=== PATIENT | male | born 1960 | race Caucasian/White ===

== ENCOUNTER 2016-08-18 17:29 | Day surgery (SDC) | payer MEDICARE, OTHER ==
[2016-08-18] VITALS (8 sets, daily range): BP systolic 131–179; BP diastolic 84–106
[~2016-08-18] VITALS: Ht 188 cm; Wt 79.9 kg
--- OUTSIDE RECORDS SUMMARY | 2016-08-18 17:36 | XMS REPORT ---
Author Author Truman Rodriguez [facility] Address [address] [place], [place] [id number] Care Team Providers Care Line Maintainer Name Role Phone Truman Rodriguez PCP Unavailable Allergies and Adverse Reactions Name Reaction Notes NO KNOWN DRUG ALLERGIES Plan of Treatment Not available. Medications Active Name Start Date Estimated Completion Date SIG Comments carvedilol 6.25 mg oral tablet 02/19/2016 05/14/2017 take 1 tablet (6.25 mg) by oral route 2 times per day with food for 90 days clonidine HCl 0.2 mg oral tablet 02/19/2016 05/14/2017 take 1 tablet by oral route 4 times a day for 90 days lisinopril 40 mg oral tablet 02/19/2016 05/14/2017 take 1 tablet (40 mg) by oral route once daily for 90 days Plavix 75 mg oral tablet 02/19/2016 05/14/2017 take 1 tablet (75 mg) by oral route once daily for 90 days Wal-Act D Cold and Allergy 2.5-60 mg oral tablet 02/19/2016 takes 2 tablets daily Lyrica 75 mg oral capsule 02/19/2016 take 1 capsule (75 mg) by oral route 2 times per day Problem List Not available. Vital Signs Date Time BP-Sys(mm[Hg] BP-Melissa(mm[Hg]) HR(bpm) RR(rpm) Temp WT HT HC BMI BSA BMI Percentile O2 Sat(%) 02/19/2016 8:54:00 AM 126 mmHg 82 mmHg 66 bpm 18 rpm 97.3 F 172 lbs 99 % Social History Not available. History of Procedures Not available. Results Summary Not available. History Of Immunizations Not available. History of Past Illness Name Date of Onset Comments Hypertension Chronic Obstructive Pulmonary Disease Neuropathy bilateral hands d/t blackburn Lumbar Pain Neck pain Hypertension Feb 19 2016 9:11AM CAD (coronary artery disease) Feb 19 2016 9:11AM Allergic rhinitis Feb 19 2016 9:11AM Burning pain Feb 19 2016 9:11AM Payers Insurance Name Company Name Plan Name Plan Number Policy Number Policy Group Number Start Date Medicare Part A Medicare RHC [id number] Sunday, 2013 Medicare Part A Medicare - Lab/Xray [id number] Sunday, September 08, 2013 History of Encounters Visit Date Visit Type Provider 02/19/2016 Office visit Truman Rodriguez MD
[2016-08-18 17:45] LABS: BASOPHILS # (AUTO) 0.1 10^3/uL (0.0-0.1); BASOPHILS % (AUTO) 1 % (0-10); EOSINOPHILS # (AUTO) 0.2 10^3/uL (0.0-0.3); EOSINOPHILS % (AUTO) 4 % (0-10); LYMPHOCYTES # (AUTO) 2.2 X 10^3 (1.0-4.0); LYMPHOCYTES % (AUTO) 34 % (12-44); MEAN CORPUSCULAR HEMOGLOBIN 33 PG (25-34); MEAN CORPUSCULAR HGB CONC 35 G/DL (32-36); MEAN CORPUSCULAR VOLUME 93 FL (80-99); MEAN PLATELET VOLUME 8.8 FL (7.4-10.4); MONOCYTES # (AUTO) 0.4 X 10^3 (0.0-1.0); MONOCYTES % (AUTO) 7 % (0-12); NEUTROPHILS # (AUTO) 3.7 X 10^3 (1.8-7.8); NEUTROPHILS % (AUTO) 55 % (42-75); PLATELET COUNT 174 10^3/uL (130-400); RED BLOOD COUNT 5.04 10^6/uL (4.35-5.85); RED CELL DISTRIBUTION WIDTH 12.9 % (10.0-14.5); WHITE BLOOD COUNT 6.7 10^3/uL (4.3-11.0)
[2016-08-18] MEDS ORDERED: CARV6.252 PO (17:58)
[2016-08-18] MEDS ORDERED: CLOP75TA69 PO (17:58)
[2016-08-18] MEDS ORDERED: LISI40TA PO (17:58)
[2016-08-18] MEDS ORDERED: CLON0.2T PO (17:58)
[2016-08-18 18:00] LABS: INR 0.9 (0.8-1.4); PROTHROMBIN TIME PATIENT 12.3 SEC (12.2-14.7)
[2016-08-18] MEDS ORDERED: ASPIRIN 81 MG CHEW (CHILDREN'S ASA) PO ONE (18:00)
[2016-08-18 18:09] LABS: ALANINE AMINOTRANSFERASE 12 U/L (0-55); ALBUMIN 4.3 G/DL (3.2-4.5); ANION GAP 9 MMOL/L (5-14); ASPARTATE AMINO TRANSFERASE 14 U/L (5-34); BILIRUBIN,TOTAL 0.5 MG/DL (0.1-1.0); BLOOD UREA NITROGEN 13 MG/DL (7-18); BUN/CREATININE RATIO 13; CALCIUM 9.4 MG/DL (8.5-10.1); CARBON DIOXIDE 26 MMOL/L (21-32); CHLORIDE 104 MMOL/L (98-107); CREATININE SERUM 1.03 MG/DL (0.60-1.30); GFR ESTIMATED > 60; GLUCOSE 89 MG/DL (70-105); MAGNESIUM 2.2 MG/DL (1.8-2.4); POTASSIUM 4.1 MMOL/L (3.6-5.0); SODIUM 139 MMOL/L (135-145); TOTAL PROTEIN 7.1 G/DL (6.4-8.2)
--- NOTE | 2016-08-18 18:10 | Diagnostic Imaging Report ---
INDICATION: Chest pain COMPARISON STUDY: None FINDINGS: Frontal view of the chest demonstrates the lungs to be clear. The heart size and vascularity are normal. There are no pleural effusions. IMPRESSION: Negative portable chest. Dictated by: Dictated on workstation # [id number]
[2016-08-18] MEDS ORDERED: NITROGLYCERIN 2% OINT 1 GM UNIT DOSE PACKET TOP ONE (18:15)
[2016-08-18] MEDS ORDERED: ACETAMINOPHEN 500 MG TAB (TYLENOL) PO ONE (18:30)
[2016-08-18] MEDS ORDERED: NS 100 ML (IVPB) BAG IV ONE (18:30)
[2016-08-18] MEDS ORDERED: IOHEXOL 350 MG/ML 150 ML (OMNIPAQUE 350) VIAL IV ONE (18:30)
[2016-08-18 18:41] LABS: AMYLASE 92 U/L (25-125); LIPASE 17 U/L (8-78)
[2016-08-18 18:47] LABS: TROPONIN I < 0.30 NG/ML (<0.30)
[2016-08-18] MEDS ORDERED: morphine INJ 10 MG/ML 1ML (SYR OR VIAL) IVP STA (18:52)
--- NOTE | 2016-08-18 18:58 | ED Chest Pain ---
General Chief Complaint: Chest Pain Stated Complaint: CP Nursing Triage Note: PT REPORTS MEDIAL CP STARTING X 2 DAYS. PT ALSO REPORTS HYPERTENSION. DENIES N/V. PT REPORTS SOA WITH CP. 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 Nursing Sepsis Screen: No Definite Risk Source: patient (JESENIA DIFFICULT HISTORIAN) History of Present Illness Time seen by provider: 18:00 Initial Comments PT ARRIVES VIA POV FROM HOME C/O CHEST PAIN FOR A FEW DAYS STATES PAIN INITIALLY WOULD COME AND GO, BUT HAS BEEN CONSTANT NOW FOR 24 HOURS PAIN RADIATES DOWN LEFT ARM TO 4TH AND 5TH FINGERS. PAIN IS ESPECIALLY BAD IN ELBOW C/O SHORTNESS OF BREATH NO SWEATS OCCASIONAL PALPITATIONS SLIGHT NAUSEA, NO VOMITING STATES HIS BP WAS 218/130 LAST PM, SO DOUBLED UP ON LISINOPRIL. TAKES ALL HIS MEDICATIONS IN THE EVENING AND HAS NOT TAKEN ANY TODAY DID TAKE [address] HERE WITHOUT SIGNIFICANT IMPROVEMENT. PT RATES PAIN 02/17 PT STATES "THIS HAPPENS ALL THE TIME" "I NEED A STENT EVERY COUPLE OF YEARS" PT STATES HE HAS HAD 4 NJ'S--NON-STEMI'S PER PT--STATES HIS EKG'S ARE ALWAYS NORMAL, BUT TROPONIN LEVELS WERE HIGH. STATES HE HAS HAD 6 CARDIAC CATHS AND 5 STENTS--STATES ONE TIME THEY COULDN'T GET THE STENT IN, BUT NEEDED IT. WENT TO [facility] YESTERDAY FOR THIS PROBLEM. ALL TESTS INCLUDING CT OF CHEST WERE REPORTEDLY NORMAL AND WAS SENT HOME. PT CONTINUES TO SMOKE 2 PPD PCP: DR. TATE, [place] PT STATES HE JUST MOVED HERE FROM [place] 8 MONTHS AGO AND JUST RECENTLY ESTABLISHED WITH DR. TATE. HAS NOT ESTABLISHED WITH OR REFERRED TO LOCAL ENGINEERING PROJECT DESIGNER SINCE MOVING HERE. Allergies and Home Medications Allergies Coded Allergies: No Known Drug Allergies (Unverified , 08/18/16) Home Medications Carvedilol 6.25 Mg Tablet 6.25 MG PO BID (Reported) Clonidine HCl 0.2 Mg Tablet 0.4 MG PO HS (Reported) Clopidogrel Bisulfate 75 Mg Tablet 75 MG PO DAILY (Reported) Lisinopril 40 Mg Tablet 40 MG PO DAILY (Reported) Review of Systems Constitutional: no symptoms reportedNo diaphoresis, No dizziness EENTM: No Symptoms Reported Respiratory: See HPI Shortness of Air SOA With Exertion Cardiovascular: See HPI Chest PainDenies Edema, Denies Lightheadedness, PalpitationsDenies Syncope Gastrointestinal: See HPIDenies Abdominal Pain, NauseaDenies Vomiting Genitourinary: No Symptoms Reported Musculoskeletal: see HPI (LEFT ARM PAIN )No back pain, No neck pain Skin: no symptoms reported Psychiatric/Neurological: No Symptoms Reported Endocrine: No Symptoms Reported Hematologic/Lymphatic: No Symptoms Reported Past Gmwtakv-Mcjpsk-Vcgdba Hx Patient Social History Alcohol Use: Denies Use Recreational Drug Use: Yes Drug of Choice: MARIJUANA Smoking Status: Current Everyday Smoker (2 PPD) Type Used: Cigarettes Recent Foreign Travel: No Contact w/Someone Who Travel: No Recent Infectious Disease Expo: No Recent Hopitalizations: No Surgeries HX Surgeries: Yes (LOWER BACK, CERVICAL FUSION, CARDIAC CATH X 6--5 STENTS, L KNEE BALLOON ANGIOPLASTY FOR DVT, SKIN GRAFTS, FEEDING TUBE/REMOVED) Surgeries: Abdominal, Cardiac, Coronary Stent, Orthopedic, Tracheostomy Respiratory Hx Respiratory Disorders: Yes (WAS INVOLVED IN EXPLOSION IN 2013 AND WAS IN [facility] FOR A MONTH AND ICU X 2 MONTHS--HAD TRACH AND FEEDING TUBE, BOTH NOW REMOVED. ) Respiratory Disorders: COPD (NO MEDICATIONS) Cardiovascular Hx Cardiac Disorders: Yes (NJ X 4, NON-STEMI'S; STENTS X 5) Cardiac Disorders: Coronary Artery Disease, Deep Vein Thrombosis, Heart Attack , Hypertension Neurological Hx Neurological Disorders: No Genitourinary Hx Genitourinary Disorders: Yes Genitourinary Disorders: Prostate Problems, Kidney Stones Gastrointestinal Hx Gastrointestinal Disorders: No Musculoskeletal Hx Musculoskeletal Disorders: Yes (CHRONIC NECK AND BACK PAIN ) Musculoskeletal Disorders: Arthritis, Chronic Back Pain Endocrine Hx Endocrine Disorders: No HEENT HX ENT Disorders: Yes (HAD TRACH IN 2014--WAS IN [facility] X 1 MONTH AND ICU X 2 MONTHS) Cancer Hx Cancer: No Psychosocial Hx Psychiatric Problems: Yes Behavioral Health Disorders: Anxiety Integumentary HX Skin/Integumentary Disorder: Yes ([place] WITH SKIN GRAFTS IN 2013 SECONDARY TO AN EXPLOSION) Blood Transfusions Hx Blood Disorders: No Physical Exam Vital Signs Vital Sign - Last 12Hours 08/18/16 17:45 Temp 97.9 Pulse 63 Resp 20 B/P 171/112 Pulse Ox 98 O2 Delivery Room Air Capillary Refill : Less Than 3 Seconds General Appearance: No Apparent Distress Anxious (TALKS NON-STOP) Thin Other ( REEKS OF CIGARETTES) HEENT: PERRL/EOMI Neck: Full Range of Motion Normal Inspection Non Tender SuppleNo Carotid Bruit , No JVD Respiratory: Chest Non Tender Normal Breath Sounds No Accessory Muscle Use No Respiratory Distress Cardiovascular: Regular Rate, Rhythm No Edema No JVD No Murmur Normal Peripheral Pulses Gastrointestinal: Normal Bowel Sounds No Organomegaly No Pulsatile Mass Non Tender Soft Extremity: Normal Capillary Refill Normal Inspection Normal Range of Motion Non Tender No Calf Tenderness No Pedal Edema Neurologic/Psychiatric: Alert Oriented x3 No Motor/Sensory Deficits skin toggler II- XII Norm as Tested Skin: Normal Color Warm/Dry Progress/Results/Core Measures Results/Orders Lab Results Laboratory Tests Test 08/18/16 17:37 Range/Units Activated Partial Thromboplast Time 26 24-35 SEC Alanine Aminotransferase (ALT/SGPT) 12 0-55 U/L Albumin 4.3 3.2-4.5 G/DL Alkaline Phosphatase 50 40-136 U/L Amylase Level 92 25-125 U/L Anion Gap 9 5-14 MMOL/L Aspartate Amino Transf (AST/SGOT) 14 5-34 U/L B-Type Natriuretic Peptide < 10.0 <100.0 PG/ML BUN/Creatinine Ratio 13 Basophils # (Auto) 0.1 0.0-0.1 10^3/uL Basophils (%) (Auto) 1 0-10 % Blood Urea Nitrogen 13 7-18 MG/DL Calcium Level 9.4 8.5-10.1 MG/DL Carbon Dioxide Level 26 21-32 MMOL/L Chloride Level 104 98-107 MMOL/L Creatinine 1.03 0.60-1.30 MG/DL Eosinophils # (Auto) 0.2 0.0-0.3 10^3/uL Eosinophils (%) (Auto) 4 0-10 % Estimat Glomerular Filtration Rate > 60 Glucose Level 89 70-105 MG/DL Hematocrit 47 40-54 % Hemoglobin 16.4 13.3-17.7 G/DL INR Comment 0.9 0.8-1.4 Lipase 17 8-78 U/L Lymphocytes # (Auto) 2.2 1.0-4.0 X 10^3 Lymphocytes (%) (Auto) 34 12-44 % Magnesium Level 2.2 1.8-2.4 MG/DL Mean Corpuscular Hemoglobin 33 25-34 PG Mean Corpuscular Hemoglobin Concent 35 32-36 G/DL Mean Corpuscular Volume 93 80-99 FL Mean Platelet Volume 8.8 7.4-10.4 FL Monocytes # (Auto) 0.4 0.0-1.0 X 10^3 Monocytes (%) (Auto) 7 0-12 % Neutrophils # (Auto) 3.7 1.8-7.8 X 10^3 Neutrophils (%) (Auto) 55 42-75 % Platelet Count 174 130-400 10^3/uL Potassium Level 4.1 3.6-5.0 MMOL/L Prothrombin Time 12.3 12.2-14.7 SEC Red Blood Count 5.04 4.35-5.85 10^6/uL Red Cell Distribution Width 12.9 10.0-14.5 % Sodium Level 139 135-145 MMOL/L Total Bilirubin 0.5 0.1-1.0 MG/DL Total Protein 7.1 6.4-8.2 G/DL Troponin I < 0.30 <0.30 NG/ML White Blood Count 6.7 4.3-11.0 10^3/uL My Orders Orders-POP GARCIA DO BNP (08/18/16 18:00) Amylase (08/18/16 18:00) Lipase (08/18/16 18:00) Troponin I (08/18/16 18:00) Aspirin Chewable Tablet (Baby Aspirin Ch (08/18/16 18:00) Nitroglycerin Ointment (Nitrobid Ointme (08/18/16 18:15) Ct Angio Chest W (08/18/16 18:19) Acetaminophen Tablet (Tylenol Tablet) (08/18/16 18:30) Iohexol Injection (Omnipaque 350 Mg/Ml 1 (08/18/16 18:30) Ns (Ivpb) (Sodium Chloride 0.9% Ivpb Bag (08/18/16 18:30) Morphine Injection (Morphine Injection (08/18/16 18:52) Diphenhydramine Injection (Benadryl Inje (08/18/16 19:15) Enoxaparin Injection (Lovenox Injection) (08/18/16 19:45) Metoprolol Tartrate (Ir) Tab (Lopressor (08/18/16 19:45) Medications Given in ED Current Medications Medications Dose Ordered Sig/Archana Route Start Time Stop Time Status Last Admin Dose Admin Acetaminophen 1,000 mg ONCE ONCE PO 08/18/16 18:30 08/18/16 18:31 DC 08/18/16 18:50 1,000 MG Aspirin 324 mg ONCE ONCE PO 08/18/16 18:00 08/18/16 18:02 DC 08/18/16 18:09 324 MG Diphenhydramine HCl 50 mg ONCE ONCE IVP 08/18/16 19:15 08/18/16 19:16 DC 08/18/16 19:11 50 MG Enoxaparin Sodium 80 mg ONCE ONCE SC 08/18/16 19:45 08/18/16 19:46 DC 08/18/16 19:44 80 MG Iohexol 125 ml ONCE ONCE IV 08/18/16 18:30 08/18/16 18:31 DC 08/18/16 18:36 125 ML Metoprolol Tartrate 25 mg ONCE ONCE PO 08/18/16 19:45 08/18/16 19:46 DC 08/18/16 19:44 25 MG Nitroglycerin 1 inch ONCE ONCE TOP 08/18/16 18:15 08/18/16 18:16 DC 08/18/16 18:09 1 INCH Sodium Chloride 80 ml ONCE ONCE IV 08/18/16 18:30 08/18/16 18:31 DC 08/18/16 18:37 80 ML Vital Signs/I&O Vital Sign - Last 12Hours 08/18/16 08/18/16 08/18/16 17:45 17:58 17:58 Temp 97.9 Pulse 63 Resp 20 B/P 171/112 Pulse Ox 98 98 O2 Delivery Room Air Room Air Room Air Blood Pressure Mean: 131 Progress Note : Progress Note HAS SOME REDNESS AND BURNING SENSATION TO SKIN ON RETURN FROM CT--HAS HAD IV DYE MULTIPLE TIMES WITHOUT PROBLEMS. WAS GIVEN BENADRYL AND SYMPTOMS RESOLVED. PAIN RESOLVED AND BP DOWN AT TIME OF ADMIT ECG Initial ECG Impression Time: 17:35 Initial ECG Rate: 66 Initial ECG Rhythm: Normal Sinus Initial ECG Comparisson: No Previous ECG Available Diagnostic Imaging Comments CXR--NO ACUTE PROCESS, PER RADIOLOGIST REPORT CT CHEST ANGIO--NO P.E., OTHER NON-ACUTE FINDINGS--PER RADIOLOGIST REPORT @ 1924 Reviewed: Reviewed by Me Departure Communication Progress Notes 1924--SPOKE WITH DR. MCLAIN, ACCEPTS PT FOR ADMIT 1925--SPOKE WITH DR. HIRSCH FOR CARDIOLOGY CONSULT. ORDERS NOTED. Impression Impression: Primary Impression: Chest pain Additional Impressions: Unstable angina Uncontrolled hypertension Disposition: ADMITTED INPATIENT Condition: Improved Decision to Admit Reason: Admit from ER (General) Decision to Admit/Date: Aug 18, 2016 Time/Decision to Admit Time: 19:35 Departure-Patient Inst. Referrals: UNKNOWN (PCP/Family) Primary Care Physician POP GARCIA DO Aug 18, 2016 18:57
[2016-08-18] MEDS ORDERED: diphenhydrAMINE 50 MG/ML INJ (BENADRYL) IVP ONE (19:15)
--- NOTE | 2016-08-18 19:22 | Diagnostic Imaging Report ---
PROCEDURE: CT angiography of the chest with contrast. TECHNIQUE: Multiple contiguous axial images were obtained through the chest after uneventful bolus administration of intravenous contrast. Reconstructed CTA MIP acquisitions were also performed. INDICATION: Shortness of breath with chest pain radiating down the left arm for two days. FINDINGS: There are no central or proximal segmental pulmonary emboli. Within the peripheral vessels, no definite emboli are seen. The very distal vessels are not well opacified. The thoracic aorta demonstrates atherosclerotic disease with no aneurysmal dilatation appreciated. At the origin of the left subclavian artery, there is atherosclerotic disease noted. The origin of the left common carotid artery contains peripheral atherosclerotic disease as well. In addition, a very tiny focal dissection versus peripheral calcification noted, best seen on the axial images 43 through 45. Within the mediastinum, no hilar or mediastinal adenopathy is appreciated. There is no axillary adenopathy. Thyroid contains multiple small nodularities. The lungs contain diffuse emphysematous disease. Areas of chronic scar or atelectasis seen bilaterally. There is no significant pericardial or pleural effusion. Peripheral scarring noted in the upper lungs towards the apices. There is no acute osseous abnormality. Within the visualized upper abdominal structures, there are multiple collateral vessels noted; nonspecific in nature. These track along the upper posterior abdomen/retroperitoneal region and adjacent to the spine. Atherosclerotic disease is noted in the upper abdominal aorta. Mild aneurysmal dilatation of the suprarenal aorta is noted measuring at least 3.2 cm. The visualized upper abdominal viscera demonstrate no acute process. Mild hyperdensity in the gallbladder could represent small stones. No surrounding inflammatory change is appreciated. IMPRESSION: 1. No evidence for pulmonary embolus. 2. Atherosclerotic disease diffusely throughout the course of the aorta with atherosclerotic changes noted in the branches of the aortic arch. A very tiny focal dissection at the origin of the left carotid artery is not excluded and is age indeterminate. More distally however, the visualized carotid artery is normal in appearance. 2. Aortic aneurysm within the upper abdomen with diffuse atherosclerotic disease and possible collateral vessels seen in the upper abdomen as well. If clinically warranted, dedicated imaging of the abdomen could further evaluate. 3. Emphysematous disease throughout the lungs with other incidental findings as described above including possible stones in the gallbladder. Sonogram of this region could be performed if there is right upper quadrant pain. Additionally, sonographic evaluation of the thyroid gland on a nonemergent basis is recommended as well due to multiple small nodules. Dictated by: Dictated on workstation # [id number]
[2016-08-18] MEDS ORDERED: ENOXAPARIN 80 MG/0.8 ML (LOVENOX) SYR SC ONE (19:45)
[2016-08-18] MEDS ORDERED: meTOprolol TARTRATE 25 MG (LOPRESSOR) TABLET PO ONE (19:45)
[2016-08-18] MEDS ORDERED: NITROGLYCERIN SUBLINGUAL 0.4 MG TAB (NITROSTAT) SL PRN (20:45)
[2016-08-18] MEDS ORDERED: PATIENT MAY USE OWN MEDS, ALL PO SCH (20:45)
[2016-08-18] MEDS ORDERED: methylPREDNISolone 125 MG (Solu-MEDROL) VIAL IVP ONE (21:45)
[2016-08-18] MEDS: morphine INJ 10 MG/ML 1ML (SYR OR VIAL) IVP PRN (22:05)
[2016-08-18] MEDS ORDERED: CATHETER FLUSH 10 ML SYR IV PRN (22:15)
[2016-08-19] VITALS (14 sets, daily range): BP systolic 114–171; BP diastolic 65–106
[2016-08-19] MEDS: CATHETER FLUSH 10 ML SYR IV SCH ×2 (05:16→14:00)
[2016-08-19 05:51] LABS: BASOPHILS % (AUTO) 0 % (0-10); EOSINOPHILS % (AUTO) 0 % (0-10); LYMPHOCYTES # (AUTO) 0.8 X 10^3 (1.0-4.0); LYMPHOCYTES % (AUTO) 17 % (12-44); MEAN CORPUSCULAR HEMOGLOBIN 33 PG (25-34); MEAN CORPUSCULAR HGB CONC 35 G/DL (32-36); MEAN CORPUSCULAR VOLUME 94 FL (80-99); MONOCYTES # (AUTO) 0.1 X 10^3 (0.0-1.0); MONOCYTES % (AUTO) 1 % (0-12); NEUTROPHILS # (AUTO) 3.6 X 10^3 (1.8-7.8); NEUTROPHILS % (AUTO) 81 % (42-75); PLATELET COUNT 151 10^3/uL (130-400); RED BLOOD COUNT 4.99 10^6/uL (4.35-5.85); WHITE BLOOD COUNT 4.5 10^3/uL (4.3-11.0)
[2016-08-19] MEDS ORDERED: diphenhydrAMINE 50 MG/ML INJ (BENADRYL) IVP ONE (06:00)
[2016-08-19 06:24] LABS: ALANINE AMINOTRANSFERASE 15 U/L (0-55); ALBUMIN 4.1 G/DL (3.2-4.5); ANION GAP 11 MMOL/L (5-14); ASPARTATE AMINO TRANSFERASE 16 U/L (5-34); BILIRUBIN,TOTAL 0.5 MG/DL (0.1-1.0); BLOOD UREA NITROGEN 13 MG/DL (7-18); BUN/CREATININE RATIO 13; CALCIUM 9.5 MG/DL (8.5-10.1); CARBON DIOXIDE 22 MMOL/L (21-32); CHLORIDE 105 MMOL/L (98-107); CHOLESTEROL 224 MG/DL (< 200); CREATININE SERUM 0.98 MG/DL (0.60-1.30); DIRECT LDL 175 MG/DL (1-129); GFR ESTIMATED > 60; GLUCOSE 162 MG/DL (70-105); POTASSIUM 4.6 MMOL/L (3.6-5.0); SODIUM 138 MMOL/L (135-145); TOTAL PROTEIN 6.8 G/DL (6.4-8.2); TRIGLYCERIDES 106 MG/DL (<150); VLDL CHOLESTEROL 21 MG/DL (5-40)
[2016-08-19] MEDS ORDERED: FLU TRIvalent (5 YOA+) 2016-17 (AFLURIA) 0.5 ML IM ONE (06:45)
--- NOTE | 2016-08-19 07:27 | Consultation-Cardiology ---
HPI-Cardiology Cardiology Consultation Date of Consultation 08/19/16 Date of Admission Indication: chest pain HPI 56-year-old gentleman with history of coronary artery disease, multiple intervention in the past, total of 4 stents. Started having recurrent episode of chest pain, left arm pain, he is an active smoker. Denied any palpitation, syncope or near syncopal episodes. History of peripheral arterial disease, active smoker. Seen in [place] to hospital the day before yesterday then seen in our emergency room yesterday and he was admitted Home Medications & Allergies Allergies: Coded Allergies: No Known Drug Allergies (Unverified , 08/18/16) Home Medication List Reviewed: Yes [id number]-Akehld Hx Patient Social History Alcohol Use: Denies Use Recreational Drug Use: Yes Drug of Choice: MARIJUANA Smoking Status: Current Everyday Smoker (2 PPD) Type Used: Cigarettes Recent Foreign Travel: No Recent Infectious Disease Expo: No Recent Hopitalizations: No Physical Abuse Screen: No Sexual Abuse: No Past Medical History past medical history as discussed Constitutional: no symptoms reported see HPI EENTM: no symptoms reported see HPI Respiratory: see HPINo cough, dyspnea on exertionNo hemoptysis, No orthopnea , No phlegm, No short of breath, No stridor, No wheezing, No other Cardiovascular: see HPI chest painNo edema, No Hx of Intervention, No palpitations, No syncope, No vascular heart diseas, No other Gastrointestinal: no symptoms reported see HPI Genitourinary: no symptoms reported see HPI Musculoskeletal: no symptoms reported see HPI Skin: no symptoms reported see HPI Psychiatric/Neurological: No Symptoms Reported See HPI Reviewed Test Results Reviewed Test Results Lab Laboratory Tests Test 08/18/16 17:37 08/18/16 23:18 08/19/16 05:44 Range/Units Activated Partial Thromboplast Time 26 24-35 SEC Alanine Aminotransferase (ALT/SGPT) 12 15 0-55 U/L Albumin 4.3 4.1 3.2-4.5 G/DL Alkaline Phosphatase 50 46 40-136 U/L Amylase Level 92 25-125 U/L Anion Gap 9 11 5-14 MMOL/L Aspartate Amino Transf (AST/SGOT) 14 16 5-34 U/L B-Type Natriuretic Peptide < 10.0 <100.0 PG/ML BUN/Creatinine Ratio 13 13 Basophils # (Auto) 0.1 0.0 0.0-0.1 10^3/uL Basophils (%) (Auto) 1 0 0-10 % Blood Urea Nitrogen 13 13 7-18 MG/DL Calcium Level 9.4 9.5 8.5-10.1 MG/DL Carbon Dioxide Level 26 22 21-32 MMOL/L Chloride Level 104 105 98-107 MMOL/L Creatinine 1.03 0.98 0.60-1.30 MG/DL Eosinophils # (Auto) 0.2 0.0 0.0-0.3 10^3/uL Eosinophils (%) (Auto) 4 0 0-10 % Estimat Glomerular Filtration Rate > 60 > 60 Glucose Level 89 162 H 70-105 MG/DL Hematocrit 47 47 40-54 % Hemoglobin 16.4 16.2 13.3-17.7 G/DL INR Comment 0.9 0.8-1.4 Lipase 17 8-78 U/L Lymphocytes # (Auto) 2.2 0.8 L 1.0-4.0 X 10^3 Lymphocytes (%) (Auto) 34 17 12-44 % Magnesium Level 2.2 1.8-2.4 MG/DL Mean Corpuscular Hemoglobin 33 33 25-34 PG Mean Corpuscular Hemoglobin Concent 35 35 32-36 G/DL Mean Corpuscular Volume 93 94 80-99 FL Mean Platelet Volume 8.8 9.0 7.4-10.4 FL Monocytes # (Auto) 0.4 0.1 0.0-1.0 X 10^3 Monocytes (%) (Auto) 7 1 0-12 % Neutrophils # (Auto) 3.7 3.6 1.8-7.8 X 10^3 Neutrophils (%) (Auto) 55 81 H 42-75 % Platelet Count 174 151 130-400 10^3/uL Potassium Level 4.1 4.6 3.6-5.0 MMOL/L Prothrombin Time 12.3 12.2-14.7 SEC Red Blood Count 5.04 4.99 4.35-5.85 10^6/uL Red Cell Distribution Width 12.9 13.0 10.0-14.5 % Sodium Level 139 138 135-145 MMOL/L Total Bilirubin 0.5 0.5 0.1-1.0 MG/DL Total Protein 7.1 6.8 6.4-8.2 G/DL Troponin I < 0.30 < 0.30 < 0.30 <0.30 NG/ML White Blood Count 6.7 4.5 4.3-11.0 10^3/uL Cholesterol Level 224 H < 200 MG/DL HDL Cholesterol 45 40-60 MG/DL LDL Cholesterol Direct 175 H 1-129 MG/DL Triglycerides Level 106 <150 MG/DL VLDL Cholesterol 21 5-40 MG/DL Physical Exam Vital Signs Vital Sign - Last 12Hours 08/18/16 17:45 Temp 97.9 Pulse 63 Resp 20 B/P 171/112 Pulse Ox 98 O2 Delivery Room Air Capillary Refill : Less Than 3 Seconds General Appearance: No Apparent Distress WD/WN Eyes: Bilateral Eye EOMI, Bilateral Eye Normal Inspection, Bilateral Eye PERRL HEENT: PERRL/EOMI TMs Normal Normal ENT Inspection Pharynx Normal Neck: Full Range of Motion Normal Inspection Non Tender Supple Carotid Bruit Respiratory: Chest Non Tender Lungs Clear Normal Breath Sounds No Accessory Muscle Use No Respiratory Distress Cardiovascular: Regular Rate, Rhythm No Edema No Gallop No JVD No Murmur Normal Peripheral Pulses Gastrointestinal: Normal Bowel Sounds No Organomegaly No Pulsatile Mass Non Tender Soft Back: Normal Inspection No CVA Tenderness No Vertebral Tenderness Extremity: Normal Capillary Refill Normal Inspection Normal Range of Motion Non Tender No Calf Tenderness No Pedal Edema Neurologic/Psychiatric: Alert Oriented x3 No Motor/Sensory Deficits Normal Mood/Affect Skin: Normal Color Warm/Dry Lymphatic: No Adenopathy A/P-Cardiology Admission Diagnosis Chest pain nonspecific etiology Coronary artery disease Hypertension Hyperlipidemia Assessment/Plan chest pain, nonspecific etiology, extensive cardiac history, having pain waxing and waning. Planning to proceed with cardiac catheterization Coronary artery disease, history of 4 stents placements in the past between [place] and [place]. Last workup was in 2013. Had small vessel disease in operable in the past. Discussed that the stress test is probably would be abnormal. I will proceed with cardiac catheterization Extensive peripheral arterial disease, history of angioplasty of the left lower extremity. Planning to monitor ELENA Hypertension, restart home and monitor blood pressure Hyperlipidemia, monitor lipids Tobaccoism, educated on smoking cessation Small abdominal aortic aneurysm noted incidentally, continue to monitor Clinical Quality Measures AMI/AHF: ASA po Prior to arrival: No DVT/VTE Risk/Contraindication: Risk Factor Score Per Nursin RFS Level Per Nursing on Admit: 4+=Very High JORGE ALBERTO HIRSCH MD Aug 19, 2016 07:27
[2016-08-19] MEDS ORDERED: NS IV 1000 ML 1,000 ML IV SCH ×2 (07:30→13:01)
--- NOTE | 2016-08-19 07:59 | Cardiac Procedure Note-CS/ASA ---
Pre-Procedure Note Pre-Op Procedure Note H&P Reviewed The H&P was reviewed, patient examined and no changes noted. Date H&P Reviewed: Aug 19, 2016 Time H&P Reviewed: 07:58 Conscious Sedation Pre-Proced Time Reviewed: 07:59 ASA Class: 3 Airway Mallampati Classification: ([place] appropriate class) I. II. III, IV Lungs Heart ASA score ASA 1: a normal healthy patient ASA 2: a patient with a mild systemic disease (mid diabetes, controlled hypertension, obesity x ASA 3: a patient with a severe systemic disease that limits activity (angina , COPD, prior Myocardial infarction) ASA 4: a patient with an incapacitating disease that is a constant threat to life (CHF, renal failure) ASA 5: a moribund patient not expected to survive 24 hrs. (ruptured aneurysm) ASA 6: a declared brain patient whose organs are being harvested. For emergent operations, add the letter E after the classification Grade 3 Sedation Plan: Analgesia, Amnesia, Plan communicated to team members, Discussed options with patient/fam, Discussed risks with patient/fam Note The patient is an appropriate candidate to undergo the planned procedure, sedation, and anesthesia. The patient immediately re-assessed prior to indication. JORGE ALBERTO HIRSCH MD Aug 19, 2016 07:59
[2016-08-19] MEDS: morphine INJ 10 MG/ML 1ML (SYR OR VIAL) IVP PRN ×2 (08:11→11:37)
[2016-08-19] MEDS ORDERED: ENOXAPARIN 80 MG/0.8 ML (LOVENOX) SYR SC SCH (09:00)
[2016-08-19] MEDS ORDERED: ASPIRIN E.C. 325 MG (ECOTRIN) TABLET PO SCH (09:00)
[2016-08-19] MEDS ORDERED: ACTIFED PO (09:45)
--- NOTE | 2016-08-19 11:18 | Short Stay Summary-Hospitalist ---
HPI History of Present Illness: HPI/Chief Complaint CC: Chest pain HPI: This is a 56yoWM new pt of Dr. Rodriguez in [place] that recently moved here with hx of severe CAD with multiple stents placed in the past that presented to the ER with complaints of chest pain. Patient Interview: Pt states that he still has itchiness. Pt states that he sees Dr. Rodriguez in [place], and last saw him in June. Pt recently moved here from [place]. 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 Pt has had 5 stents placed, and has had 4 documented mild heart attacks. Pt smokes. Pt does not often drink ETOH. Pt states that he has spoken with Dr. Melvin about another heart cath. Physical exam stable. Pt states that he did not bring sinus medication with pt, and would like a decongestant. Scribed by Jamal Lopez under the direct supervision of Dr. Mclain. Source: patient Date Seen 08/19/16 Attending Physician Rabia Mclain DO PCP No,Local Physician Referring Physician Date of Admission Aug 18, 2016 at 19:46 Home Medications & Allergies Home Medications Reviewed patient Home Medication Reconciliation Form Allergies Coded Allergies: Iodinated Contrast Media - Oral and (Verified Allergy, Unknown, RASH, ) Past Bkrqyug-Lfedvs-Jtcfsw Hx Patient Social History Marrital Status: single Employed/Student: retired Alcohol Use: Denies Use Recreational Drug Use: Yes Drug of Choice: MARIJUANA Smoking Status: Current Everyday Smoker (2 PPD) Type Used: Cigarettes Physical Abuse Screen: No Sexual Abuse: No Recent Foreign Travel: No Contact w/other who traveled: No Recent Hopitalizations: No Recent Infectious Disease Expo: No Seasonal Allergies Seasonal Allergies: No Surgeries HX Surgeries: Yes (LOWER BACK, CERVICAL FUSION, CARDIAC CATH X 6--5 STENTS, L KNEE BALLOON ANGIOPLASTY FOR DVT, SKIN GRAFTS, FEEDING TUBE/REMOVED) Surgeries: Abdominal, Cardiac, Coronary Stent, Orthopedic, Tracheostomy Respiratory Hx Respiratory Disorders: Yes (WAS INVOLVED IN EXPLOSION IN 2013 AND WAS IN COMA FOR A MONTH AND ICU X 2 MONTHS--HAD TRACH AND FEEDING TUBE, BOTH NOW REMOVED. ) Cardiovascular Hx Cardiovascular Disorders: Yes (PA X 4, NON-STEMI'S; STENTS X 5) Cardiac Disorders: Coronary Artery Disease, Deep Vein Thrombosis, Heart Attack , Hypertension Neurological Hx Neurological Disorders: No Reproductive System Sexually Transmitted Disease: No HIV/AIDS: No Genitourinary Hx Genitourinary Disorders: Yes Genitourinary Disorders: Prostate Problems, Kidney Stones Gastrointestinal Hx Gastrointestinal Disorders: No Gastrointestinal Disorders: Gastroesophageal Reflux Musculoskeletal Hx Musculoskeletal Disorders: Yes (CHRONIC NECK AND BACK PAIN ) Musculoskeletal Disorders: Arthritis, Chronic Back Pain Endocrine Hx Endocrine Disorders: No HEENT HX ENT Disorders: Yes (HAD TRACH IN 2014--WAS IN COMA X 1 MONTH AND ICU X 2 MONTHS) Loss of Vision: Denies Cancer Hx Cancer: No Psychosocial Hx Psychiatric Problems: Yes Behavioral Health Disorders: Anxiety Integumentary HX Skin/Integumentary Disorder: Yes ([place] WITH SKIN GRAFTS IN 2014 SECONDARY TO AN EXPLOSION) Blood Transfusions Hx Blood Disorders: No Review of Systems Constitutional: see HPI EENTM: no symptoms reported Respiratory: short of breath Cardiovascular: chest pain Gastrointestinal: no symptoms reported Genitourinary: no symptoms reported Musculoskeletal: no symptoms reported Skin: no symptoms reported Psychiatric/Neurological: No Symptoms Reported All Other Systems Reviewed Negative Unless Noted: Yes Physical Exam Physical Exam Vital Signs Vital Sign - Last 12Hours 08/18/16 17:45 Temp 97.9 Pulse 63 Resp 20 B/P 171/112 Pulse Ox 98 O2 Delivery Room Air Capillary Refill : Less Than 3 Seconds General Appearance: No Apparent Distress WD/WN Chronically ill Eyes: Bilateral Eye Normal Inspection, Bilateral Eye PERRL HEENT: PERRL/EOMI Normal ENT Inspection Pharynx Normal Neck: Full Range of Motion Normal Inspection Non Tender Supple Carotid Bruit Respiratory: Chest Non Tender Lungs Clear Normal Breath Sounds No Accessory Muscle Use No Respiratory Distress Cardiovascular: Regular Rate, Rhythm No Edema No Gallop No JVD No Murmur Normal Peripheral Pulses Gastrointestinal: Normal Bowel Sounds No Organomegaly No Pulsatile Mass Non Tender Soft Back: Normal Inspection No CVA Tenderness No Vertebral Tenderness Extremity: Normal Capillary Refill Normal Inspection Normal Range of Motion Non Tender No Calf Tenderness No Pedal Edema Neurologic/Psychiatric: Alert Oriented x3 No Motor/Sensory Deficits Normal Mood/Affect Skin: Normal Color Warm/Dry Lymphatic: No Adenopathy Results Results/Procedures Lab Laboratory Tests 08/18/16 17:37 08/19/16 05:44 Short Stay Diagnosis Discharge Diagnosis-Short Stay Admission Diagnosis Assessment: Chest pain with known severe CAD pt with 5 stents placed in past Continued smoker Hyperlipidemia Chronic sinus congestion Final Discharge Diagnosis Assessment: Chest pain with known severe CAD pt with 5 stents placed in past Continued smoker Hyperlipidemia Chronic sinus congestion Conclusion Plan Plan: Heart cath Review meds for decongestant Send note to PCP in [place]. Clinical Quality Measures AMI/AHF: ASA po Prior to arrival: No DVT/VTE Risk/Contraindication: Risk Factor Score Per Nursin RFS Level Per Nursing on Admit: 4+=Very High RABIA MCLAIN DO Aug 19, 2016 11:18
[2016-08-19] MEDS ORDERED: LIDOCAINE 1% INJ 20 ML (XYLOCAINE) VIAL ONE (12:00)
[2016-08-19] MEDS ORDERED: HEParin (CATH LAB) 2,000 ML IV ONE (12:00)
[2016-08-19] MEDS ORDERED: NS IV 1000 ML 1,000 ML ONE (12:00)
[2016-08-19] MEDS ORDERED: MIDAZOLAM 5 MG/5 ML (VERSED) VIAL ONE (12:02)
[2016-08-19] MEDS ORDERED: fentaNYL INJECTION 100 MCG/2 ML AMP ONE (12:02)
[2016-08-19] MEDS ORDERED: diphenhydrAMINE 50 MG/ML INJ (BENADRYL) ONE (12:02)
[2016-08-19] MEDS ORDERED: methylPREDNISolone 125 MG (Solu-MEDROL) VIAL ONE (12:23)
[2016-08-19] MEDS ORDERED: PATIENT MAY USE OWN MEDS, ALL PO SCH (13:15)
[2016-08-19] MEDS ORDERED: cloNIDine 0.2 MG (CATAPRES) TAB PO SCH (21:00)
[2016-08-19] MEDS ORDERED: ATORVASTATIN 10 MG (LIPITOR) TABLET PO SCH (21:00)
[2016-08-20] MEDS ORDERED: ACTIFED PO SCH (09:00)
--- NOTE | 2016-08-21 10:45 | CARDIAC CATHETERIZATION ---
PROCEDURE PHYSICIAN: JORGE ALBERTO HIRSCH DATE OF PROCEDURE: 08/19/2016 REFERRING PHYSICIAN: Dr. Rabia Sampson. BRIEF HISTORY: Mr. Alvarez is a 56-year-old gentleman with extensive cardiac history, coronary artery disease and peripheral arterial disease. He came in with chest pain scheduled for left heart catheterization. PROCEDURE NOTE: After explaining the procedure to the patient, all pros and cons were explained. All questions were answered. The patient signed a consent, then he was placed on the cardiac catheterization laboratory the right groin was prepped in a sterile fashion. Local anesthesia applied to right groin. 6-Malaysian sheath was placed in the right femoral artery. I advanced Maxwell right catheter over the J-wire to the right coronary system, angiogram was done. Multiple views were taken. Then I exchanged over a long wire due to the fact that the CT scan reported small dissection in the aortic arch and performed angiogram to the left coronary system. I was obligated to use multiple views due to the fact that the patient had left main and pressure was (s/l dampening) out every time I attempted to intubate the left main coronary system. Then a long J-wire was used again to exchange into a pigtail catheter advanced to the left ventricular cavity. Pressure was measured. Left ventriculogram was done. Pullback LV to aorta was done. The aortic arch angiogram was done. I proceeded with abdominal aortogram evaluation due to the fact that it was mentioned in the CAT scan that it is suspected abdominal aortic aneurysm. The patient will need a bypass surgery and I wanted to make sure that the aneurysm will not interfere with a balloon pump placement. At the end of the procedure, sheath was removed. Mynx device deployed. Hemostasis achieved. FINDINGS: HEMODYNAMICS: LV pressure 141/14, end-diastolic pressure of 14, aortic pressure 154/89, mean of 140 ANATOMY: 1. Left main coronary artery is small artery appeared to have diffuse tubular stenosis with distal severe stenosis. 2. Left anterior descending artery is calcified artery, multiple segments, midportion has 70% stenosis. 3. Left circumflex artery has a patent stent at the proximal portion. Ostial circ has 95% stenosis. 4. Right coronary artery is diffusely diseased. Proximally there is a 40 to 50% stenosis. Otherwise, small vessel. 5. Left ventriculogram: Left ventriculogram was done in the right anterior oblique position. The left ventricle is normal in size with normal contractility. Estimated ejection fraction 60%. 6. Aortic arch angiogram: Aortic arch angiogram was done in the left anterior oblique position. Aortic arch evaluation showed diffuse atherosclerotic plaque. Origin of the left subclavian artery showed some calcification. It does not appear to be dissection. 7. Abdominal aortogram: Abdominal aortogram was done in AP position. Abdominal aorta is slightly prominent. Small aneurysmal dilatation infrarenally. No dissection was noted. Renal arteries appeared normal. Superior and anterior mesenteric artery are normal. CONCLUSION: 1. Tubular stenosis in the left main with severe stenosis in the left main distally. 2. Moderate disease diffusely in the LAD with mid 70% stenosis. 3. Ostial circumflex, 95% stenosis. 4. 40 to 50% stenosis in the proximal right coronary artery with diffuse disease distally. 5. Normal left ventricular size and systolic function. Estimated ejection fraction 60%. 6. Hypertensive changes in the thoracic and abdominal aorta with a small infrarenal abdominal aortic aneurysm. Calcification at the origin of the carotids. Job ID: [id number] Dictated Date: 08/19/2016 13:01:52 Marketing Area Manager Date: 08/21/2016 10:36:13 / tomy
--- NOTE | 2016-08-21 10:48 | DISCHARGE SUMMARY ---
PROCEDURE PHYSICIAN: JORGE ALBERTO HIRSCH DATE OF PROCEDURE: 08/19/2016 REFERRING PHYSICIAN: Dr. Rabia Sampson. BRIEF HISTORY: Mr. Alvarez is a 56-year-old gentleman with extensive cardiac history, coronary artery disease and peripheral arterial disease. He came in with chest pain scheduled for left heart catheterization. PROCEDURE NOTE: After explaining the procedure to the patient, all pros and cons were explained. All questions were answered. The patient signed a consent, then he was placed on the cardiac catheterization laboratory the right groin was prepped in a sterile fashion. Local anesthesia applied to right groin. 6-Lithuanian sheath was placed in the right femoral artery. I advanced Maxwell right catheter over the J-wire to the right coronary system, angiogram was done. Multiple views were taken. Then I exchanged over a long wire due to the fact that the CT scan reported small dissection in the aortic arch and performed angiogram to the left coronary system. I was obligated to use multiple views due to the fact that the patient had left main and pressure was (s/l dampening) out every time I attempted to intubate the left main coronary system. Then a long J-wire was used again to exchange into a pigtail catheter advanced to the left ventricular cavity. Pressure was measured. Left ventriculogram was done. Pullback LV to aorta was done. The aortic arch angiogram was done. I proceeded with abdominal aortogram evaluation due to the fact that it was mentioned in the CAT scan that it is suspected abdominal aortic aneurysm. The patient will need a bypass surgery and I wanted to make sure that the aneurysm will not interfere with a balloon pump placement. At the end of the procedure, sheath was removed. Mynx device deployed. Hemostasis achieved. FINDINGS: HEMODYNAMICS: LV pressure 141/14, end-diastolic pressure of 14, aortic pressure 154/89, mean of 140 ANATOMY: 1. Left main coronary artery is small artery appeared to have diffuse tubular stenosis with distal severe stenosis. 2. Left anterior descending artery is calcified artery, multiple segments, midportion has 70% stenosis. 3. Left circumflex artery has a patent stent at the proximal portion. Ostial circ has 95% stenosis. 4. Right coronary artery is diffusely diseased. Proximally there is a 40 to 50% stenosis. Otherwise, small vessel. 5. Left ventriculogram: Left ventriculogram was done in the right anterior oblique position. The left ventricle is normal in size with normal contractility. Estimated ejection fraction 60%. 6. Aortic arch angiogram: Aortic arch angiogram was done in the left anterior oblique position. Aortic arch evaluation showed diffuse atherosclerotic plaque. Origin of the left subclavian artery showed some calcification. It does not appear to be dissection. 7. Abdominal aortogram: Abdominal aortogram was done in AP position. Abdominal aorta is slightly prominent. Small aneurysmal dilatation infrarenally. No dissection was noted. Renal arteries appeared normal. Superior and anterior mesenteric artery are normal. CONCLUSION: 1. Tubular stenosis in the left main with severe stenosis in the left main distally. 2. Moderate disease diffusely in the LAD with mid 70% stenosis. 3. Ostial circumflex, 95% stenosis. 4. 40 to 50% stenosis in the proximal right coronary artery with diffuse disease distally. 5. Normal left ventricular size and systolic function. Estimated ejection fraction 60%. 6. Hypertensive changes in the thoracic and abdominal aorta with a small infrarenal abdominal aortic aneurysm. Calcification at the origin of the carotids. FINAL DIAGNOSIS: 1. Coronary artery disease. 2. Peripheral arterial disease. 3. Unstable angina. 4. Hypertension. 5. Hyperlipidemia. 6. Infrarenal abdominal aortic aneurysm. Job ID: [id number] Dictated Date: 08/19/2016 13:01:52 Shoe Caser Date: 08/21/2016 10:45:19/tomy
[2016-08-31] MEDS ORDERED: LORA10TA7 PO (09:12)
== END 2016-08-19 15:48 | disposition short-term general hospital (02) ==
LOC: ER 17:32 → UNDOADMOB 19:46 → CSD 19:46 → CATH 20:20 → CSD 20:20 → UNDODISOB 08-19 15:48 → CATH 08-19 15:48
PROVIDERS: ATTEND Internal Medicine
DX: I25.110 Atherosclerotic heart disease of native coronary artery with unstable angina pectoris (principal); I70.0 Atherosclerosis of aorta; I71.4 Abdominal aortic aneurysm, without rupture; I10 Essential (primary) hypertension; E78.5 Hyperlipidemia, unspecified; R09.81 Nasal congestion; I73.9 Peripheral vascular disease, unspecified; Z72.0 Tobacco use; Z95.5 Presence of coronary angioplasty implant and graft; Z98.62 Peripheral vascular angioplasty status; Z79.899 Other long term (current) drug therapy
CPT/HCPCS: 36221; 36415; 71010; 71275; 75625; 80053; 80061; 82150; 83690; 83735; 83880; 84484; 85025; 85610; 85730; 90471; 93005; 93041; 93458; 96372; 96374; 96375; G0378

== ENCOUNTER 2016-08-29 18:40 | Inpatient (IN) | payer MEDICARE ==
[~2016-08-29] VITALS: Ht 188 cm; Wt 73.8 kg
[~2016-08-29 18:40] MED LIST: ACTIFED PO; CARV6.252 PO; CLON0.2T PO; CLOP75TA69 PO; LISI40TA PO
[2016-08-29 19:00] VITALS: BP 120/76
[2016-08-29] MEDS: ATORVASTATIN 80 MG (LIPITOR) TABLET PO SCH (21:00)
[2016-08-29] MEDS: CARVEDILOL 6.25 MG (COREG) TAB PO SCH (21:00)
[2016-08-29] MEDS: lisINopril 20 MG (ZESTRIL) TAB PO SCH (21:02)
[2016-08-29] MEDS: HYDROcodone/APAP 7.5 MG/325 MG (LORTAB, LORCET PLUS) TABLET PO PRN (21:22)
[2016-08-30] MEDS: HYDROcodone/APAP 7.5 MG/325 MG (LORTAB, LORCET PLUS) TABLET PO PRN ×4 (03:40→21:35)
[2016-08-30 03:47] VITALS: BP 121/84
[2016-08-30] MEDS: PSEUDOEPHEDRINE HCL 30 MG (SUDAFED) TAB PO SCH ×4 (07:07→23:30)
[2016-08-30] MEDS ORDERED: FLU TRIvalent (5 YOA+) 2016-17 (AFLURIA) 0.5 ML IM ONE (07:30)
--- NOTE | 2016-08-30 08:27 | Consultation-Cardiology ---
HPI-Cardiology Cardiology Consultation Date of Consultation 08/30/16 Date of Admission Indication: CAD, s/p CABG HPI Patient is a 56 y/o male with history of CAD, HTN, Tobaccoism. Presented to the ER earlier this month with unstable angina. Underwent cardiac catheterization revealing multivessel disease and was transferred to [facility] in [place] where he underwent CABGx3. Patient was discharged on 08/27/16 to inpatient rehab here at [facility]. Complains of some incisional pain with cough. Denies any dyspnea, dizziness, lightheadedness. Has been tolerating ambulation without difficulty. Patient was seen and evaluated he is a 56-year-old gentleman underwent CABG last week, transferred to rehabilitation, has questionable peripheral arterial disease, hypertension, hyperlipidemia. He is feeling better at this time, wounds are healing. Reporting improvement Home Medications & Allergies Allergies: Coded Allergies: Iodinated Contrast Media - Oral and (Verified Allergy, Unknown, RASH, ) Home Medication List Reviewed: Yes medication list reviewed KWM-[id number]-[id number] Hx Patient Social History Marital Status: single Alcohol Use: Rarely Uses Recreational Drug Use: No Drug of Choice: MARIJUANA Smoking Status: Current Everyday Smoker Type Used: Cigarettes Recent Foreign Travel: No Recent Infectious Disease Expo: No Recent Hopitalizations: Yes Physical Abuse Screen: No Sexual Abuse: No Family Medical History Family History: Colon cancer 19 FATHER (STATES THE ONLY HEALTH ISSUE HIS FATHER HAD WAS COLON CA AND ONLY HEALTH ISSUE MOTHER HAD WAS LUNG CA ) FH: lung cancer 19 MOTHER Constitutional: No chills, No diaphoresis, No dizziness, No fever, malaiseNo weakness EENTM: No blurred vision, No double vision, No hoarseness, No throat pain, No vision loss Respiratory: No cough, No dyspnea on exertion Cardiovascular: No chest pain, No edema, No palpitations Gastrointestinal: No abdominal pain, No constipation Genitourinary: No frequency, No hematuria Musculoskeletal: No back pain, No joint pain Skin: No lesions, No lumps, No rash Psychiatric/Neurological: Denies Anxiety, Denies Depressed Physical Exam Vital Signs Vital Sign - Last 12Hours 08/29/16 19:00 Temp 97.8 Pulse 62 Resp 18 B/P 120/76 Pulse Ox 95 O2 Delivery Room Air Capillary Refill : General Appearance: No Apparent Distress WD/WN HEENT: PERRL/EOMI Normal ENT Inspection Neck: Normal Inspection Non Tender Supple Respiratory: Chest Non Tender Lungs Clear Normal Breath Sounds No Accessory Muscle Use No Respiratory Distress Cardiovascular: Regular Rate, Rhythm No Edema No Gallop No JVD No Murmur Gastrointestinal: No Pulsatile Mass Non Tender Soft Rectal: Deferred Back: No CVA Tenderness Extremity: Non Tender No Calf Tenderness Neurologic/Psychiatric: Alert Oriented x3 advertising sales executive II-XII Norm as Tested Skin: Normal Color Warm/Dry Lymphatic: No Adenopathy A/P-Cardiology Admission Diagnosis CAD AAA PAD HTN Assessment/Plan Coronary artery disease, history of 4 stents placements in the past between [place] and [place]. Underwent cardiac catheterization on 08/21/16 revealing tubular stenosis in the left main with severe stenosis in the left main distally. Moderate disease diffusely in the LAD with mid 70% stenosis. Ostial circumflex, 95% stenosis. 40 to 50% stenosis in the proximal right coronary artery with diffuse disease distally. Normal left ventricular size and systolic function. Estimated ejection fraction 60%. Patient was transferred to [facility] in [place], [place] where he underwent CABG x [address] Corado with KIM to LAD, VG to OM and VG to RCA. Transmyocardial endarterectomy of the anterior descending coronary artery, transmyocardial laser revascularization of the LV wall. Recovering well. Continue with PT/OT. Small infrarenal abdominal aortic aneurysm noted during cardiac catheterization. Continue to monitor. Extensive peripheral arterial disease, history of angioplasty of the left lower extremity. Planning to monitor ELENA as outpatient. Hypertension, continue on current medications and continue to monitor. Hyperlipidemia,maintained on Lipitor. monitor lipids Tobaccoism, patient reports he quit smoking after his bypass surgery. Thank you for allowing us to participate in the management of Mr. Alvarez. This is Cesilia Ortega PA-C as a scribe for Dr. Melvin. This is Dr. Melvin, I have seen and evaluated the patient with Cesilia, interviewed the patient and perform physical examination, I agree with the current scribe, he is a 56-year-old gentleman with coronary artery disease had CABG with TMLR, recovering slowly. I we'll continue on aspirin and Plavix, continue to monitor blood pressure closely, continue on statin. He has stopped smoking, educated on using incentive spirometry, chest wound appeared to be healing, lungs were clear to auscultation bilaterally, heart is regular rate and rhythm. I will continue to monitor blood pressure, monitor EKG and electrolytes. I reviewed the note and did few modification and used Italic Font Clinical Quality Measures DVT/VTE Risk/Contraindication: Risk Factor Score Per Nursin RFS Level Per Nursing on Admit: 4+=Very High CESILIA DENIS Aug 30, 2016 08:27 JORGE ALBERTO MELVIN MD Aug 30, 2016 08:56
[2016-08-30] MEDS: LORATADINE (CLARITIN) 10 MG TAB PO SCH (08:55)
[2016-08-30] MEDS: CLOPIDOGREL 75 MG (PLAVIX) TABLET PO SCH (08:55)
[2016-08-30] MEDS: ASPIRIN E.C. 325 MG (ECOTRIN) TABLET PO SCH (08:55)
[2016-08-30] MEDS: CARVEDILOL 6.25 MG (COREG) TAB PO SCH ×2 (08:55→20:43)
--- NOTE | 2016-08-30 09:47 | ST Cognitive Linguistic Eval ---
Speech Evaluation-General Medical Diagnosis CABG x3 Onset Date: Aug 29, 2016 Therapy Diagnosis Therapy Diagnosis: Questionable Cognitive Impairment Precautions Precautions/Isolations: Standard Precautions Referral Referring Physician: Dr. Nathan Hoffmann Reason for Referral: Evaluation/Treatment Cognitive, Speech, Language Evaluation Medical History Pertinent Medical History: CABG, CAD, COPD Reviewed History: Yes Speech PLF-Current Status Prior Level of Function The patient denied cognitive, speech, or language deficits prior to or throughout his recent hospitalization. Subjective The patient was recently admitted to [facility] following a CABG x3. The patient greeted the clinician appropriately upon entrance and was agreeable to participate in the cognitive evaluation on this date. Language Eval: Auditory Comprehends Simple Yes/No Ques: Functional Indent/Objects Multiple Brown: Functional Ident/Pics in Multiple Brown: Functional Follows 1-Step Commands: Functional Follows Complex Directions: Functional Follows General Conversations: Functional Language Eval: Verbal Language Completes Spontaneous Greeting: Functional Produces Auto, Serial Info: Functional Imitates Simple Words/Phrases: Functional Word Finding: Functional Requests Basic Needs: Functional States Basic Personal Info: Functional Expresses Complex Ideas: Functional Cognitive Patient Orientation The patient was oriented to name, location, city, month, year, and date ( independently). Objective Cognitive Domain Attention: WNL Memory: WNL Problem Solving: Functional Objective Impression The patient demonstrated cognitive linguistic skills within normal limits for completion of ADL's. Communication/Social Cognition Comprehension: 6 Expression: 6 Social Interaction: 6 Problem Solvin Memory: 6 Speech Patient Assess Expression of Ideas/Wants: Expression (4) Understanding Vebal Content: Understands (4) Brief Interview-Mental Status: Yes Repetition of Three Words: Three (3) Temporal Orientation: Year: Correct (3) Temporal Orientation: Month: Accurate within 5 days(2) Temporal Orientation: Day: Correct (1) Recall : Wear to say "Sock": Yes, no cue required (2) Recall : Color: Yes, no cue required (2) Recall : Bed: Yes, no cue required (2) Speech-Plan Treatment Plan Speech Therapy Treatment Plan: Discontinue ST Evaluation, only. Rehab Potential: Good Safety Risks/Education Teaching Recipient: Patient Teaching Methods: Discussion Response to Teaching: Verbalize Understanding Education Topics Provided: Plan of Care, Results Time Speech Therapy Time In: 08:26 Speech Therapy Time Out: 08:41 Total Billed Time: 15 Billed Treatment Time 1, SPSNDCOMP M[facility] Aug 30, 2016 09:47
--- NOTE | 2016-08-30 11:50 | Physical Therapy Evaluation ---
PT Evaluation-General Medical Diagnosis Admission Date Aug 29, 2016 at 18:40 Medical Diagnosis: CABG x3 Onset Date: Aug 29, 2016 Therapy Diagnosis Therapy Diagnosis: impaired mobility, strength, endurance Height/Weight Height (Feet): 6 Height (Inches): 2.00 Weight (Pounds): 162 Weight (Ounces): 9.6 Precautions Precautions/Isolations: Standard Precautions chest precautions Referral Physician: Shun Reason for Referral: Evaluation/Treatment Medical History Pertinent Medical History: CABG, CAD, COPD, HTN Additional Medical History smoker, AAA, PAD Current History had CABG x 3 on 08/23/16 Reviewed History: Yes Social History Home: Multilevel Current Living Status: Other Family Entry Into Home: Stairs With Railing Patient only has a couple of steps to enter the home but his bedroom is upstairs , he lives with his son I believe Prior/Core FIM Prior Level of Function Functional [place] Measure 0=Not Assessed/NA 4=Minimal Assistance 1=Total Assistance 5=Supervision or Setup 2=Maximal Assistance 6=Modified [place] 3=Moderate Assistance 7=Complete [place] Bed Mobility: 7 Transfers (B,C,W/C) (FIM): 7 Gait: 7 PT Evaluation-Current Subjective Patient in bed pre tx, agrees to PT, has pain of 3/10 in his chest and has some complaints of pain in his left shoulder but states it is not angina Pt/Family Goals to be able to take care of himself at home Objective Patient Orientation: Normal For Age ROM/Strength ROM Lower Extremities NT on right leg because it was used to harvest a vein for the grafts, left leg WNL Strenght Lower Extremities right leg not tested, left leg 4+/5 gross Integumentary/Posture Bowel Incontinence: No Neuromuscular (Tone, Coordination, Reflexes) WNL Sensory Vision: Functional Hearing: Functional Sensation Right Lower Extremit: Intact Sensation Left Lower Extremity: Intact Transfers Functional [place] Measure 0=Not Assessed/NA 4=Minimal Assistance 1=Total Assistance 5=Supervision or Setup 2=Maximal Assistance 6=Modified [place] 3=Moderate Assistance 7=Complete IndependenceIRFPAI Quality Coding Scale 6 Independent with activity with or without an assistive device 5 Patient requires set up or clean up by helper. Patient completes activity by themselves 4 Supervision or touching assist (CGA). [place] provide cues , steadying assist 3 The helper provides less than half the effort to complete the activity 2 The helper provides more than half the effort to complete the activity 1 Dependent. The helper does all the effort to complete an activity 7 Patient refused to complete or attempt activity 9 The patient did not perform the activity before the current illness or injury 88 Not attempted due to Medical conditions or safety concerns Transfers (B, C, W/C) (FIM): 7 Scootin Rollin Roll Left to Right (QC): 6 Supine to/from Sit: 7 Sit to/from Stand: 7 Sit to Lying (QC): 6 Lying to Sitting/Side of Bed(Q: 6 Sit to Stand (QC): 6 Gait Does the Patient Walk?: Yes Mode of Locomotion: Walk Anticipated Mode of Locomotion: Walk Gait (FIM): 7 Walk 10 feet (QC): 6 Walk 50 ft with 2 Turns(QC): 6 Walk 150 ft (QC): 6 Walking 10ft/uneven surface-QC: 6 Distance: 800' Gait Assistive Device: None Comments/Gait Description Patient ambulated 800' without an assistive device with independence (including 10' over an uneven surface and 50' with at least 2 turns of 90 degrees), slow, careful ambulation, no LOB of moments of unsteadiness Stairs Stairs (FIM): 5 #of Steps: 12 Level of Assist: 5 1 Step (curb) (QC): 4 4 Steps (QC): 4 12 Steps (QC): 4 standby assist, just cues for foot placement since his right leg is sore Balance Sitting Static: Normal Sitting Dynamic: Normal Standing Static: Normal Standing Dynamic: Normal Picking up an Object (QC): 5 Treatment Esteves balance scale score is 53/56 indicating he does not need an assistive device and is not at risk for falling, he also spent 10 min on the Nustep at level 4, patient instructed on his chest precautions and is aware and compliant Assessment/Needs Patient has impairments in mobility (specifically just stairs), strength, and endurance, post CABGx3 Rehab Potential: Good PT Fci Goals Fci Goals PT Anodic Operator Goals Time Frame: Sep 06, 2016 Stairs (FIM): 6 # of Steps: 12 1 Step (curb) (QC): 6 4 Steps (QC): 6 12 Steps (QC): 6 PT Plan Problem List Problem List: Activity Tolerance, Functional Strength, Safety, Gait Treatment/Plan Treatment Plan: Continue Plan of Care Treatment Plan: Education, Functional Activity Maritza, Functional Strength, Gait , Therapeutic Exercise Treatment Duration: Sep 06, 2016 # of days/week 5-6 Visits Per Week: 10-11 Minutes/Day (M-F): 60-90 Minutes/Day (Sat/Aguero): 15-30 Pt/Family Agrees w/Plan: Yes Safety Risks/Education Patient Education: Gait Training, Transfer Techniques, Steps, Disease Process, Safety Issues Teaching Recipient: Patient Teaching Methods: Demonstration, Discussion Response to Teaching: Reinforcement Needed Discharge Recommendations Plan Patient will perform gait training, endurance training, functional strengthening , stair training, education, to improve functional mobility and independence at home. Therapy D/C Recommendations: Home w/ Family Support Time/GCodes Time In: 1100 Time Out: 1200 Total Billed Treatment Time: 60 Total Billed Treatment 1 visit EVL 20 min FA 15 min EX 10 min NM 15 min WELLINGTON RESENDEZ PT Aug 30, 2016 11:50
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
--- NOTE | 2016-08-30 13:56 | Physical Therapy Daily Note ---
PT Daily Note-Current Subjective Patient in bed pre tx, still has pain in left shoulder and chest and right leg. Pain is 3/10. Appearance Patient sitting on bed post tx with nurse call, phone, tray, all needs met. Mental Status Patient Orientation: Normal For Age Transfers Functional Story Measure 0=Not Assessed/NA 4=Minimal Assistance 1=Total Assistance 5=Supervision or Setup 2=Maximal Assistance 6=Modified Story 3=Moderate Assistance 7=Complete IndependenceIRFPAI Quality Coding Scale 6 Independent with activity with or without an assistive device 5 Patient requires set up or clean up by helper. Patient completes activity by themselves 4 Supervision or touching assist (CGA). [place] provide cues , steadying assist 3 The helper provides less than half the effort to complete the activity 2 The helper provides more than half the effort to complete the activity 1 Dependent. The helper does all the effort to complete an activity 7 Patient refused to complete or attempt activity 9 The patient did not perform the activity before the current illness or injury 88 Not attempted due to Medical conditions or safety concerns Transfers (B, C, W/C) (FIM): 7 Scootin Rollin Supine to/from Sit: 7 Sit to/from Stand: 7 Gait Training Gait (FIM): 7 Distance: 3000' Gait Assistive Device: None Patient ambulated off the floor and outside of the hospital over community surfaces and uneven surfaces with independence. Treatments ambulation Assessment Current Status: Fair Progress improving endurance, he did need an occasional standing rest break PT Intermediate Goals Intermediate Goals PT Intermediate Goals Time Frame: Sep 06, 2016 Rollin Stairs (FIM): 6 # of Steps: 12 1 Step (curb) (QC): 6 4 Steps (QC): 6 12 Steps (QC): 6 PT Plan Problem List Problem List: Activity Tolerance, Functional Strength, Safety, Balance, Gait Treatment/Plan Treatment Plan: Continue Plan of Care Treatment Plan: Education, Functional Activity Maritza, Functional Strength, Gait , Therapeutic Exercise Treatment Duration: Sep 06, 2016 Visits Per Week: 10-11 Minutes/Day (M-F): 60-90 Minutes/Day (Sat/Aguero): 15-30 Safety Risks/Education Patient Education: Gait Training, Safety Issues Teaching Recipient: Patient Teaching Methods: Demonstration, Discussion Response to Teaching: Reinforcement Needed Time/GCodes Time In: 1300 Time Out: 1330 Total Billed Treatment Time: 30 Total Billed Treatment 1 visit GT 30 min WELLINGTON RESENDEZ PT Aug 30, 2016 13:56
[2016-08-30] MEDS ORDERED: HYDR-3816 PO (14:17)
[2016-08-30] MEDS ORDERED: P EP PO (14:17)
[2016-08-30] MEDS ORDERED: CLOP75TA69 PO (14:17)
[2016-08-30] MEDS ORDERED: CARV6.252 PO (14:17)
[2016-08-30] MEDS ORDERED: ATOR80TA76 PO (14:17)
[2016-08-30] MEDS ORDERED: ASPI325T32 PO (14:17)
[2016-08-30] MEDS ORDERED: LISI40TA PO (14:17)
[2016-08-30 18:00] VITALS: BP 114/73
[2016-08-30] MEDS: lisINopril 20 MG (ZESTRIL) TAB PO SCH (20:43)
[2016-08-30] MEDS: ATORVASTATIN 80 MG (LIPITOR) TABLET PO SCH (20:43)
[2016-08-31] MEDS: HYDROcodone/APAP 7.5 MG/325 MG (LORTAB, LORCET PLUS) TABLET PO PRN ×2 (02:44→10:20)
[2016-08-31 05:06] VITALS: BP 114/78
[2016-08-31] MEDS: PSEUDOEPHEDRINE HCL 30 MG (SUDAFED) TAB PO SCH (05:10)
[2016-08-31 06:31] LABS: BASOPHILS % (AUTO) 0 % (0-10); EOSINOPHILS # (AUTO) 0.4 10^3/uL (0.0-0.3); EOSINOPHILS % (AUTO) 4 % (0-10); LYMPHOCYTES # (AUTO) 2.2 X 10^3 (1.0-4.0); LYMPHOCYTES % (AUTO) 19 % (12-44); MEAN CORPUSCULAR HEMOGLOBIN 32 PG (25-34); MEAN CORPUSCULAR HGB CONC 33 G/DL (32-36); MEAN CORPUSCULAR VOLUME 97 FL (80-99); MEAN PLATELET VOLUME 9.2 FL (7.4-10.4); MONOCYTES # (AUTO) 0.4 X 10^3 (0.0-1.0); MONOCYTES % (AUTO) 4 % (0-12); NEUTROPHILS # (AUTO) 8.4 X 10^3 (1.8-7.8); NEUTROPHILS % (AUTO) 73 % (42-75); PLATELET COUNT 348 10^3/uL (130-400); RED BLOOD COUNT 3.21 10^6/uL (4.35-5.85); RED CELL DISTRIBUTION WIDTH 15.7 % (10.0-14.5); WHITE BLOOD COUNT 11.4 10^3/uL (4.3-11.0)
[2016-08-31 06:59] LABS: ALANINE AMINOTRANSFERASE 28 U/L (0-55); ALBUMIN 3.5 G/DL (3.2-4.5); ANION GAP 10 MMOL/L (5-14); ASPARTATE AMINO TRANSFERASE 26 U/L (5-34); BILIRUBIN,TOTAL 0.8 MG/DL (0.1-1.0); BLOOD UREA NITROGEN 20 MG/DL (7-18); BUN/CREATININE RATIO 25; CALCIUM 9.1 MG/DL (8.5-10.1); CARBON DIOXIDE 22 MMOL/L (21-32); CHLORIDE 104 MMOL/L (98-107); CREATININE SERUM 0.81 MG/DL (0.60-1.30); GFR ESTIMATED > 60; GLUCOSE 99 MG/DL (70-105); POTASSIUM 4.4 MMOL/L (3.6-5.0); SODIUM 136 MMOL/L (135-145); TOTAL PROTEIN 6.5 G/DL (6.4-8.2)
--- NOTE | 2016-08-31 08:10 | Cardiology Progress Note ---
Subjective Subjective/Events-last exam Complains of some incisional pain with cough. Denies any CP or dyspnea. Review of Systems General: No Night Sweats, FatigueNo Malaise, No Appetite HEENT: No Visual Changes, No Dysphasia, No Sore Throat Pulmonary: No Dyspnea, No Cough Cardiovascular: No: Chest Pain, Orthopnea, Palpitations Gastrointestinal: No: Abdominal Pain, Nausea, Vomiting Genitourinary: No Dysuria, No Frequency Musculoskeletal: No: back pain, neck pain Neurological: No: Change in speech, Confusion, Numbness, Weakness Objective-Cardiology Exam Last Set of Vital Signs Vital Signs 08/31/16 05:06 Temp 97.3 Pulse 64 Resp 18 B/P 114/78 Pulse Ox 96 O2 Delivery Room Air Capillary Refill : I&O Intake and Output 08/31/16 00:00 Intake Total 1150 ml Output Total 2 ml Balance 1148 ml Intake Oral 1150 ml Output Urine Total 2 ml # Voids 2 General: Alert, Oriented X3, Cooperative HEENT: Atraumatic, PERRLA Neck: Supple, No JVD, No Thyromegaly Lungs: Clear to Auscultation, Normal Air Movement Heart: Regular Rate, Normal S1, Normal S2, No Murmurs Abdomen: Normal Bowel Sounds, Soft, No Tenderness Skin: No Rashes, No Significant Lesion Neuro: Normal Gait, Normal Speech Psych/Mental Status: Mental Status NL, Mood NL Results Lab Laboratory Tests 08/31/16 06:00 A/P-Cardiology Admission Diagnosis CAD AAA PAD HTN Assessment/Plan Coronary artery disease, history of 4 stents placements in the past between [place] and [place]. Underwent cardiac catheterization on 08/21/16 revealing tubular stenosis in the left main with severe stenosis in the left main distally. Moderate disease diffusely in the LAD with mid 70% stenosis. Ostial circumflex, 95% stenosis. 40 to 50% stenosis in the proximal right coronary artery with diffuse disease distally. Normal left ventricular size and systolic function. Estimated ejection fraction 60%. Patient was transferred to [facility] in [place], [place] where he underwent CABG x [address] Corado with KIM to LAD, VG to OM and VG to RCA. Transmyocardial endarterectomy of the anterior descending coronary artery, transmyocardial laser revascularization of the LV wall. Recovering well. Continue with PT/OT. Small infrarenal abdominal aortic aneurysm noted during cardiac catheterization. Continue to monitor. Extensive peripheral arterial disease, history of angioplasty of the left lower extremity. Planning to monitor ELENA as outpatient. Hypertension, controlled, continue on current medications and continue to monitor. Hyperlipidemia,maintained on Lipitor. monitor lipids Tobaccoism, patient reports he quit smoking after his bypass surgery. Clinical Quality Measures DVT/VTE Risk/Contraindication: Risk Factor Score Per Nursin RFS Level Per Nursing on Admit: 4+=Very High CLAYTON DENIS Aug 31, 2016 08:10
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
[2016-08-31] MEDS: LORATADINE (CLARITIN) 10 MG TAB PO SCH (08:25)
[2016-08-31] MEDS: ASPIRIN E.C. 325 MG (ECOTRIN) TABLET PO SCH (08:25)
[2016-08-31] MEDS: CLOPIDOGREL 75 MG (PLAVIX) TABLET PO SCH (08:25)
[2016-08-31] MEDS: CARVEDILOL 6.25 MG (COREG) TAB PO SCH (08:25)
[2016-08-31] MEDS: lisINopril 20 MG (ZESTRIL) TAB PO SCH (08:25)
--- NOTE | 2016-08-31 08:41 | Cardiology Progress Note ---
Subjective Subjective/Events-last exam Patient is laying down in bed, insisting on going home today, did not sleep well in the hospital. Expressed that he is feeling better and ready to go home. Review of Systems General: No Chills, No Night Sweats, No Fatigue, No Malaise, No Appetite, No Other HEENT: No Head Aches, No Visual Changes, No Eye Pain, No Ear Pain, No Dysphasia , No Sinus Congestion, No Post Nasal Drip, No Sore Throat, No Other Pulmonary: No Dyspnea, No Cough, No Pleuritic Chest Pain, No Other Cardiovascular: No: Chest Pain, Edema, Lt Headedness, Orthopnea, Other, Palpitations, Paroxysmal Noc. Dyspnea Objective-Cardiology Exam Last Set of Vital Signs Vital Signs 08/31/16 05:06 Temp 97.3 Pulse 64 Resp 18 B/P 114/78 Pulse Ox 96 O2 Delivery Room Air Capillary Refill : I&O Intake and Output 08/31/16 00:00 Intake Total 1150 ml Output Total 2 ml Balance 1148 ml Intake Oral 1150 ml Output Urine Total 2 ml # Voids 2 General: Alert, Oriented X3, Cooperative HEENT: Atraumatic, PERRLA Neck: Supple, No JVD, No Thyromegaly Lungs: Clear to Auscultation, Normal Air Movement Heart: Regular Rate, Normal S1, Normal S2, No Murmurs Abdomen: Normal Bowel Sounds, Soft, No Tenderness Skin: No Rashes, No Significant Lesion Neuro: Normal Gait, Normal Speech Psych/Mental Status: Mental Status NL, Mood NL Results Lab Laboratory Tests 08/31/16 06:00 A/P-Cardiology Admission Diagnosis CAD AAA PAD HTN Assessment/Plan Coronary artery disease, history of 4 stents placements in the past between [place] and [place]. Underwent cardiac catheterization on 08/21/16 revealing tubular stenosis in the left main with severe stenosis in the left main distally. Moderate disease diffusely in the LAD with mid 70% stenosis. Ostial circumflex, 95% stenosis. 40 to 50% stenosis in the proximal right coronary artery with diffuse disease distally. Normal left ventricular size and systolic function. Estimated ejection fraction 60%. Patient was transferred to [facility] in [place], [place] where he underwent CABG x [address] Corado with KIM to LAD, VG to OM and VG to RCA. Transmyocardial endarterectomy of the anterior descending coronary artery, transmyocardial laser revascularization of the LV wall. Patient was receiving physical therapy, consisting on going home today, understanding the need for continuing with rehabilitation but expressed that he is not sleeping well in the hospital and requesting to be discharged. Small infrarenal abdominal aortic aneurysm noted during cardiac catheterization. Continue to monitor. Extensive peripheral arterial disease, history of angioplasty of the left lower extremity. Planning to monitor ELNEA as outpatient. Hypertension, controlled, continue on current medications and continue to monitor. Hyperlipidemia,maintained on Lipitor. monitor lipids Tobaccoism, patient reports he quit smoking after his bypass surgery. Clinical Quality Measures DVT/VTE Risk/Contraindication: Risk Factor Score Per Nursin RFS Level Per Nursing on Admit: 4+=Very High JORGE ALBERTO HIRSCH MD Aug 31, 2016 08:41
--- NOTE | 2016-08-31 09:01 | Physical Therapy Daily Note ---
PT Daily Note-Current Subjective Pt sitting up in bed upon arrival. Pt is discharging today per pt & Dr report. Pain Numeric Pain Scale: 5-Moderate Pain Location: Incisional Location Body Site: Thigh Pain Description: Tightness Comment: Pt reports pain in R thigh during tx Mental Status Patient Orientation: Person, Place, Time, Situation Transfers Functional [place] Measure 0=Not Assessed/NA 4=Minimal Assistance 1=Total Assistance 5=Supervision or Setup 2=Maximal Assistance 6=Modified [place] 3=Moderate Assistance 7=Complete IndependenceIRFPAI Quality Coding Scale 6 Independent with activity with or without an assistive device 5 Patient requires set up or clean up by helper. Patient completes activity by themselves 4 Supervision or touching assist (CGA). [place] provide cues , steadying assist 3 The helper provides less than half the effort to complete the activity 2 The helper provides more than half the effort to complete the activity 1 Dependent. The helper does all the effort to complete an activity 7 Patient refused to complete or attempt activity 9 The patient did not perform the activity before the current illness or injury 88 Not attempted due to Medical conditions or safety concerns Transfers (B, C, W/C) (FIM): 7 Scootin Rollin Roll Left to Right (QC): 7 Supine to/from Sit: 7 Sit to/from Stand: 7 Sit to Lying (QC): 7 Sit to Stand (QC): 7 Chair/Ajd-ok-Acbel Xfer(QC): 7 Bed to/from Chair: 7 Car Transfer (QC): 6 Pt completes simulated car transfer in Therapy Gym. Weight Bearing Weight Bearing Restriction: Full Weight Bearing Location Restriction: LE Bilateral Gait Training Does the Patient Walk?: Yes Gait (FIM): 7 Distance (FIM): 3=150 ft Distance: 500' Walk 10 feet (QC): 7 Walk 50 ft with 2 Turns(QC): 7 Walk 150 ft (QC): 7 Walking 10ft/uneven surface-QC: 7 Gait Level of Assist: 7 Gait Persons Needed: 1 Gait Assistive Device: None Pt walks with normalized gait pattern. Pt fatigues and needs rest break after approx. 350'. Wheelchair Training Does the Pt Use a Wheelchair?: No Stair Training Stair Training: Handrails/: 2 handrails Stairs (FIM): 6 #of Steps: 12 1 Step (curb) (QC): 6 4 Steps (QC): 6 12 Steps (QC): 6 Stairs: Pattern: Reciprocal Level of Assist: 6 Balance Picking up an Object (QC): 6 Exercises NuStep Minutes: 5 NuStep Workload: 3 Treatments Pt transfers from bed to standing at [facility] w/o AD. Pt ambulates in hallway w/o AD at [facility] for approx. 350' before resting in chair in Therapy Gym. Pt transfers from sitting to standing at [facility] from chair and then ambulates stairs. Pt ambulates stairs using both handrails in reciprocal gait pattern at [facility]. Pt then transfers to [facility] for strength & activity tolerance as well as simulated car transfer and used for 5m at Workload 3. Pt then transfers to standing from NuStep at [facility] and ambulates back to room to rest. Pt transfers back to supine in bed at [facility] and rolls side to side at [facility]. Pt is left with all needs met at end of tx. Assessment Current Status: Good Progress Pt reports being ready to go back home and has support of his children when he goes home. Pt is Mod I -Indep. with mobility and transfers and is safe with both. PT Half-Way Goals Half-Way Goals PT Exercise Physiologist Goals Time Frame: Sep 06, 2016 Rollin Stairs (FIM): 6 # of Steps: 12 1 Step (curb) (QC): 6 4 Steps (QC): 6 12 Steps (QC): 6 PT Plan Problem List Problem List: Activity Tolerance Treatment/Plan Treatment Plan: Continue Plan of Care Treatment Plan: Education, Functional Activity Maritza, Functional Strength, Gait , Therapeutic Exercise Treatment Duration: Sep 06, 2016 Visits Per Week: 10-11 Minutes/Day (M-F): 60-90 Minutes/Day (Sat/Aguero): 15-30 Safety Risks/Education Patient Education: Steps, Correct Positioning, Safety Issues Teaching Recipient: Patient Teaching Methods: Discussion Response to Teaching: Verbalize Understanding Time/GCodes Time In: 830 Time Out: 900 Total Billed Treatment Time: 30 Total Billed Treatment visit, GT (10m) & FA (20m) MARTIN MEZA PTA Aug 31, 2016 09:01
--- NOTE | 2016-08-31 09:09 | PM & R (SOAP) Progress Note ---
Subjective Subjective/Events-last exam Patient was seen in GYM this AM Appreciate Cardiology note Patient anxious to retrun home with family.Would benefit from staying longer but patient feels he will sleep better at home. DR Melvin has OKD and discussed case with Nursing and administration staff. Objective Exam Last Set of Vital Signs Vital Signs Date Time Temp Pulse Resp B/P Pulse Ox O2 Delivery O2 Flow Rate FiO2 08/31/16 05:06 97.3 64 18 114/78 96 Room Air Capillary Refill : I&O Intake and Output 08/31/16 00:00 Intake Total 1150 ml Output Total 2 ml Balance 1148 ml Intake Oral 1150 ml Output Urine Total 2 ml # Voids 2 General: Alert, Oriented X3, Cooperative HEENT: Atraumatic, PERRLA Neck: Supple, No JVD, No Thyromegaly Lungs: Clear to Auscultation, Normal Air Movement Heart: Regular Rate, Normal S1, Normal S2, No Murmurs Abdomen: Normal Bowel Sounds, Soft, No Tenderness Skin: No Rashes, No Significant Lesion Neuro: Normal Gait, Normal Speech Psych/Mental Status: Mental Status NL, Mood NL Results Lab Laboratory Tests 08/31/16 06:00: Alanine Aminotransferase (ALT/SGPT) 28, Albumin 3.5, Alkaline Phosphatase 56, Anion Gap 10, Aspartate Amino Transf (AST/SGOT) 26, BUN/Creatinine Ratio 25, Basophils # (Auto) 0.0, Basophils (%) (Auto) 0, Blood Urea Nitrogen 20H, Calcium Level 9.1, Carbon Dioxide Level 22, Chloride Level 104, Creatinine 0.81 , Eosinophils # (Auto) 0.4H, Eosinophils (%) (Auto) 4, Estimat Glomerular Filtration Rate > 60, Glucose Level 99, Hematocrit 31L, Hemoglobin 10.3L, Lymphocytes # (Auto) 2.2, Lymphocytes (%) (Auto) 19, Mean Corpuscular Hemoglobin 32, Mean Corpuscular Hemoglobin Concent 33, Mean Corpuscular Volume 97, Mean Platelet Volume 9.2, Monocytes # (Auto) 0.4, Monocytes (%) (Auto) 4, Neutrophils # (Auto) 8.4H, Neutrophils (%) (Auto) 73, Platelet Count 348, Potassium Level 4.4, Red Blood Count 3.21L, Red Cell Distribution Width 15.7H, Sodium Level 136, Total Bilirubin 0.8, Total Protein 6.5, White Blood Count 11.4H Assessment/Plan Assessment General debil s/p cabg Tobaccoism currently abstaining Plan Discharge today to home See ayesha/F/U with DR Melvin and DR Delgado CTS SEBASTIAN Vizcaino MD Aug 31, 2016 9:08 am
[2016-08-31] MEDS ORDERED: LORA10TA7 PO (09:12)
--- NOTE | 2016-08-31 09:17 | Individualized Plan of Care ---
Individualized Plan of Care Rehab Nursing IPOC Order Admission Date Aug 29, 2016 at 6:40 pm Current Orders Orders-SEBASTIAN TAPIA MD Atorvastatin Tablet (Lipitor Tablet) (08/29/16 21:00) Hydrocodone/Apap 7.5/325 Tab (Lortab 7. (08/29/16 19:45) Lisinopril Tablet (Zestril Tablet) (08/29/16 21:00) Loratadine Tablet (Claritin Tablet) (08/30/16 09:00) Carvedilol Tablet (Coreg Tablet) (08/29/16 21:00) Clopidogrel Tablet (Plavix Tablet) (08/30/16 09:00) Physical Therapy Oder (08/29/16 19:40) Admission (Physician Order) (08/29/16 19:40) Code/Resuscitation (08/29/16 19:40) Initiate Admission Nursing Pro .admission (08/29/16 19:40) Occupational Therapy Order (08/29/16 19:40) Speech Therapy Orders (08/29/16 19:40) Cho 60g/M 1snack (16-2000 Jesse) (08/29/16 Dinner) Aspirin Enteric Coated Tablet (Ecotrin T (08/30/16 09:00) Consult Physician (08/29/16 19:55) Consult Physician (08/29/16 19:55) Rt Request For Service (08/29/16 19:55) Staple/Suture Removal (09/05/16 09:00) Influenza Vac Order Indicated (08/29/16 22:21) Activity As Ordered (08/30/16 01:31) Pseudoephedrine Tablet (Sudafed Tablet) (08/30/16 07:07) Influenza Trivalent [id number] (Afluria ( (08/30/16 07:30) Nursing Communication (Pt.Care (08/30/16 09:11) Nursing Communication (Pt.Care (08/30/16 09:11) Nursing Communication (Pt.Care (08/30/16 09:11) Incentive Spirometryrt Initial (08/30/16 09:33) Incentive Spirometry (Nursing) Q2H (08/30/16 09:33) Patient Visit (08/30/16 ) Speech Sound Lang Comp (08/30/16 ) Patient Visit (08/30/16 ) Pt Eval Low Complexity (08/30/16 ) Exercise Therap, Ea 15 Min (08/30/16 ) Ex Neuromuscular, Ea 15 Min (08/30/16 ) Functional Activities, Ea 15 (08/30/16 ) Gait Training, Ea 15 Min (08/30/16 ) Cbc With Automated Diff (08/31/16 06:00) Comprehensive Metabolic Panel (08/31/16 06:00) Attending Discharge (08/31/16 09:09) PT IPOC Problem List: Activity Tolerance, Functional Strength, Safety, Balance, Gait Treatment Plan: Modify Plan, see comments Education, Functional Activity Maritza, Functional Strength, Gait, Therapeutic Exercise Treatment Duration: Sep 06, 2016 Visits Per Week: 10-11 Minutes/Day (M-F): 60-90 Minutes/Day (Sat/Aguero): 15-30 OT IPOC Problems: Decreased Activ Tolerance, Decreased UE Strength, Impaired Self-Care Skills OT Problems Pt would benefit from skilled OT to increase his independence and safety in basic ADLs to allow him to safely return home to live with family, after CABG x 3 and resultant weakness and decreased activity tolerance Plan of Care: ADL Retraining, Functional Mobility, Group Exercise/Act as Ind ( education, exercise, activity tolerance, functional activities), UE Funct Exercise/Act Treatment Duration: Sep 06, 2016 Visits Per Week: 10-11 Minutes/Day (M-F): 60-90 Minutes/Day (Sat/Aguero): prn ST IPOC Speech Therapy Treatment Plan: Discontinue ST Physician IPOC Medical Issues being managed closely and that require the 24 hour availability of a physician:HTN Medical Issues: DVT Prophylaxis, Falls Precautions, Fluid/Electrolyte/ Nutrition Balance, Infection Protection, Pain Management, Wound Care, Other ( List) (as per above) 56 yo male s/p CABG at OSH referred her for inpatient rehab Lives with family in [facility] HTN Tobaccoism -currently abstaining Wants an early discharge as patient reports will sleep better at home.Brief Synthesis of Preadmission Screen , Post-Admission Evaluation, and Therapy Evaluations: See note previously-DR Melvin has OKD discharge Patient will have f/ u with Cardiology and PCP Medical Prognosis: good Anticipated Length of Stay: 1 week Rehab Goals Mod I for adls and mobility skills Anticipated discharge destinat: Home with family to [facility] with [facility]HC SEBASTIAN TAPIA MD Aug 31, 2016 9:17 am
--- NOTE | 2016-08-31 09:53 | Occupational Ther Daily Note ---
OT Current Status-Daily Note Subjective Pt seen in room, agreeable to OT. Is planning on going home today. No pain mentioned. "I'm doing more here than I will do at home". Appearance Alert, cooperative Mental Status/Objective Patient Orientation: Person, Place, Time, Situation Functional [place] Measure 0=Not Assessed/NA 4=Minimal Assistance 1=Total Assistance 5=Supervision or Setup 2=Maximal Assistance 6=Modified [place] 3=Moderate Assistance 7=Complete [place] Attachments: Other-See Comments (dressings and strings) ADL-Treatment Pt education on adapted equipment that he might consider for home - toilet riser for short toilet upstairs and shower chair for when he can start showering. referred to RN for information on when he can shower. pt education on energy conservation techniques - provided him with written instructions on techniques and answered all his questions. pt left up in bed, all needs met. Functional [place] Measure 0=Not Assessed/NA 4=Minimal Assistance 1=Total Assistance 5=Supervision or Setup 2=Maximal Assistance 6=Modified [place] 3=Moderate Assistance 7=Complete IndependenceIRFPAI Quality Coding Scale 6 Independent with activity with or without an assistive device 5 Patient requires set up or clean up by helper. Patient completes activity by themselves 4 Supervision or touching assist (CGA). [place] provide cues , steadying assist 3 The helper provides less than half the effort to complete the activity 2 The helper provides more than half the effort to complete the activity 1 Dependent. The helper does all the effort to complete an activity 7 Patient refused to complete or attempt activity 9 The patient did not perform the activity before the current illness or injury 88 Not attempted due to Medical conditions or safety concerns Eating (FIM): 6 (Orders own food, opens packages, cuts food. Uses dentures) Eating (QC): 6 Grooming (FIM): 7 (Stood at sink to brush teeth, comb hair, wash face and hands. No devices or extra time) Oral Hygiene (QC): 6 Bathing (FIM): 6 (Per pt report. Able to wash and dry all parts, set up sponge bath. pt still not allowed to shower, per business analytics analyst) Shower/Bathe Self (QC): 6 Upper Body (FIM): 7 (Retrieved clean clothes from suitcase and put dirty ones away. ) Upper Body Dressing (QC): 6 Lower Body Dressing (FIM): 7 (Retrieved clean clothes from suitcase and put dirty ones away. Sat to dress. Able to doff/don slocks and shoes, tying laces. No AD) Lower Body Dressing (QC): 6 On/Off Footwear (QC): 6 Toileting (FIM): 6 (Tall toilet. Does not use grab bars. Manages clothing and hygiene) Toileting Hygiene (QC): 6 Toilet/Commode Transfer (FIM): 6 (Tall toilet. Does not use grab bars) Toilet Transfer (QC): 6 Shower Transfer(FIM): 0 (Not allowed to shower, per business analytics analyst) Education OT Patient Education: Energy conservation, Modified ADL techniques, Progress toward Goal/Update tx plan Teaching Recipient: Patient Teaching Methods: Discussion Response to Teaching: Verbalize Understanding OT Short Term Goals Short Term Goals 1=Demonstrate adherence to instructed precautions during ADL tasks. 2=Patient will verbalize/demonstrate understanding of assistive devices/ modifications for ADL. 3=Patient will improve strength/tolerance for activity to enable patient to perform ADL's. OT Senior Care Goals Rigging [place] Goals Time Frame: Sep 06, 2016 Eating (FIM): 6 (Goal met 08-31-16) Eating (QC): 6 (Goal met 08-31-16) Groomin (Goal met 08-31-16) Oral Hygiene (QC): 6 (Goal met 08-31-16) Bathing(FIM): 6 (Goal met 08-31-16) Shower/Bathe Self (QC): 6 (Goal met 08-31-16) Upper Body Dressing(FIM): 6 (Goal met 08-31-16) Upper Body Dressing (QC): 6 (Goal met 08-31-16) Lower Body Dressing(FIM): 6 (Goal met 08-31-16) Lower Body Dressing (QC): 6 (Goal met 08-31-16) On/Off Footwear (QC): 6 (Goal met 08-31-16) Toileting(FIM): 6 (Goal met 08-31-16) Toileting Hygiene (QC): 6 (Goal met 08-31-16) Toilet/Commode Transfer(FIM): 6 (Goal met 08-31-16) Toilet/Commode Transfer (QC): 6 (Goal met 17) Shower Transfer(FIM): 6 (Goal not met - pt not allowed to shower) Additional Goals: 2-Verbalize Understanding, 3-ImproveStrength/Maritza 1=Demonstrate adherence to instructed precautions during ADL tasks. 2=Patient will verbalize/demonstrate understanding of assistive devices/ modifications for ADL. 3=Patient will improve strength/tolerance for activity to enable patient to perform ADL's. OT Education/Plan Problem List/Assessment Pt would benefit from skilled OT to increase his independence and safety in basic ADLs to allow him to safely return home to live with family, after CABG x 3 and resultant weakness and decreased activity tolerance Discharge Recommendations Plan/Recommendations: Discharge/Goals Met (see tx plan for specifics) Treatment Plan/Plan of Care Patient would benefit from OT for education, treatment and training to promote independence in ADL's, mobility, safety and/or upper extremity function for ADL' s. Plan of Care: ADL Retraining, Functional Mobility, Group Exercise/Act as Ind ( education, exercise, activity tolerance, functional activities), UE Funct Exercise/Act Treatment Duration: Sep 06, 2016 Visits Per Week: 10-11 Minutes/Day (M-F): 60-90 Minutes/Day (Sat/Aguero): prn Agreement: Yes Rehab Potential: Good Time/GCodes Start Time: 09:10 Stop Time: 09:35 Total Time Billed (hr/min): 25 Billed Treatment Time visit, 25 minutes ADL NICK CARVAJAL OT Aug 31, 2016 09:53
--- NOTE | 2016-08-31 10:04 | Therapy Team Discharge Summary ---
Therapy Discharge Summary Discharge Recommendations Date of Discharge August 31, 2016 Therapy D/C Recommendations: Home w/ Family Support Occupational Therapy Pt was seen for skilled OT to increase his independence in basic ADLs after cardiac bypass surgery and hospitalization. On admission he was setup for basic ADLs except mod I for eating and toileting. By discharge he was modified independent to independent with all basic ADLs. The only equipment used was a tall toilet. He did not need AD for ambulation components of ADLs. All goals met except shower transfer - he was not allowed to shower, per freight manager. Pt discharged to home, with no additional OT recommended. DC OT PT Nursing Home Goals Nursing Home Goals PT Platform Material Handler Manager Goals Time Frame: Sep 06, 2016 Stairs (FIM): 6 # of Steps: 12 1 Step (curb) (QC): 6 4 Steps (QC): 6 12 Steps (QC): 6 OT Platform Material Handler Manager Goals Nursing Home Goals Time Frame: Sep 06, 2016 Eating (FIM): 6 (Goal met 08-31-16) Eating (QC): 6 (Goal met 08-31-16) Oral Hygiene (QC): 6 (Goal met 08-31-16) Grooming(FIM): 6 (Goal met 08-31-16) Bathing(FIM): 6 (Goal met 08-31-16) Shower/Bathe Self (QC): 6 (Goal met 08-31-16) Upper Body Dressing(FIM): 6 (Goal met 08-31-16) Upper Body Dressing (QC): 6 (Goal met 08-31-16) Lower Body Dressing(FIM): 6 (Goal met 08-31-16) Lower Body Dressing (QC): 6 (Goal met 08-31-16) On/Off Footwear (QC): 6 (Goal met 08-31-16) Toileting(FIM): 6 (Goal met 08-31-16) Toileting Hygiene (QC): 6 (Goal met 08-31-16) Toilet/Commode Transfer(FIM): 6 (Goal met 08-31-16) Toilet/Commode Transfer (QC): 6 (Goal met 08-31-16) Shower Transfer(FIM): 6 (Goal not met - pt not allowed to shower) Additional Goals: 2-Verbalize Understanding, 3-ImproveStrength/Maritza 1=Demonstrate adherence to instructed precautions during ADL tasks. 2=Patient will verbalize/demonstrate understanding of assistive devices/ modifications for ADL. 3=Patient will improve strength/tolerance for activity to enable patient to perform ADL's. NICK CARVAJAL OT Aug 31, 2016 10:04
--- NOTE | 2016-08-31 10:57 | Therapy Team Discharge Summary ---
Therapy Discharge Summary Discharge Recommendations Date of Discharge Therapy D/C Recommendations: Home w/ Family Support Physical Therapy Patient came to rehab following a CABGx3. Upon admission patient performed bed mobility and transfers with independence, ambulated with independence, and went up and down 12 steps without using railing with SBA. Patient has been performing balance and endurance training, functional strengthening, gait training, stair training, and education. Patient has made good progress and has met all of his [facility] goals. Patient is being discharged from this facility today and will be discharged from PT at this time. PT Longterm Goals Multimedia Services Coordinator Goals PT Longterm Goals Time Frame: Sep 06, 2016 Stairs (FIM): 6 # of Steps: 12 1 Step (curb) (QC): 6 4 Steps (QC): 6 12 Steps (QC): 6 OT Multimedia Services Coordinator Goals Longterm Goals Time Frame: Sep 06, 2016 Eating (FIM): 6 (Goal met 08-31-16) Eating (QC): 6 (Goal met 08-31-16) Oral Hygiene (QC): 6 (Goal met 08-31-16) Grooming(FIM): 6 (Goal met 08-31-16) Bathing(FIM): 6 (Goal met 08-31-16) Shower/Bathe Self (QC): 6 (Goal met 08-31-16) Upper Body Dressing(FIM): 6 (Goal met 08-31-16) Upper Body Dressing (QC): 6 (Goal met 08-31-16) Lower Body Dressing(FIM): 6 (Goal met 08-31-16) Lower Body Dressing (QC): 6 (Goal met 08-31-16) On/Off Footwear (QC): 6 (Goal met 08-31-16) Toileting(FIM): 6 (Goal met 08-31-16) Toileting Hygiene (QC): 6 (Goal met 08-31-) Toilet/Commode Transfer(FIM): 6 (Goal met 08-31-) Toilet/Commode Transfer (QC): 6 (Goal met 08-31-) Shower Transfer(FIM): 6 (Goal not met - pt not allowed to shower) Additional Goals: 2-Verbalize Understanding, 3-ImproveStrength/Maritza 1=Demonstrate adherence to instructed precautions during ADL tasks. 2=Patient will verbalize/demonstrate understanding of assistive devices/ modifications for ADL. 3=Patient will improve strength/tolerance for activity to enable patient to perform ADL's. WELLINGTON RESENDEZ PT Aug 31, 2016 10:57
[2016-08-31 11:00] VITALS: BP 114/78
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
== END 2016-08-31 11:00 | disposition home health service (06) | DRG 303 ==
PROVIDERS: ADMIT Physical Medicine & Rehabilitation; ATTEND Physical Medicine & Rehabilitation
DX: I25.10 Atherosclerotic heart disease of native coronary artery without angina pectoris (principal); Z95.1 Presence of aortocoronary bypass graft; Z95.5 Presence of coronary angioplasty implant and graft; I71.4 Abdominal aortic aneurysm, without rupture; I10 Essential (primary) hypertension; I73.9 Peripheral vascular disease, unspecified; D64.9 Anemia, unspecified; E78.5 Hyperlipidemia, unspecified; F17.210 Nicotine dependence, cigarettes, uncomplicated
CPT/HCPCS: 36415; 80053; 85025